=== PATIENT | male | born 1965 | race Two or more races ===

== ENCOUNTER 2020-09-25 11:12 | Outpatient (REF) | payer OTHER, SELFPAY | END 2020-09-25 11:13 | disposition home or self-care (01) | LOC: HO.LAB 11:12 | PROVIDERS: Visit Provider Internal Medicine | DX: Z20.828 Contact with and (suspected) exposure to other viral communicable diseases (principal) | CPT/HCPCS: C9803; U0003 ==

== ENCOUNTER → 2020-10-13 14:07 | Outpatient (BNVA) | payer OTHER, SELFPAY | PROVIDERS: PCP Internal Medicine; Referring Provider Internal Medicine; Visit Provider Student in an Organized Health Care Education/Training Program | DX: Z76.89 Persons encountering health services in other specified circumstances (principal) ==

== ENCOUNTER 2021-01-02 09:46 | Outpatient (REF) | payer OTHER, SELFPAY ==
--- NOTE | ~2021-01-02 | XR_ITS ---
EXAMINATION: X-RAY ORBITS CLINICAL INFORMATION: Evaluate metal to the eyes.. COMPARISON: None TECHNIQUE: 3 views of the orbits FINDINGS: No radiopaque metallic density is seen projected over the orbits bilaterally. Visualized maxillary sinuses appear well-aerated. The frontal sinuses are not well seen. Densities related to prior dental work. XR/XR pre mri screening IMPRESSION: No radiopaque metallic foreign body is seen projected over the orbits bilaterally.
--- NOTE | ~2021-01-02 | MR_ITS ---
EXAM: MR RIGHT HAND WITH AND WITHOUT CONTRAST CLINICAL INDICATION: History of right hand pain and difficulty clinching fingers into a fist. COMPARISON: Right hand radiographs dated March 08, 2020. TECHNIQUE: MRI of the right hand was performed without administration of IV contrast using a local coil. Multisequence, multiplanar imaging was performed. FINDINGS: Bones: The bone marrow signal intensity is within normal limits. No fracture line or bone marrow edema. The joint spaces are maintained. No erosion or periosteal edema. Ligaments: The collateral ligaments are intact. The volar (save the fifth volar plate as described below) and dorsal plates are intact. The visualized sagittal bands are intact. Tendons/Pulleys: There is complete disruption of the A3 shawnee at the fifth PIP joint. Additionally, there appears to be high-grade disruption of the A4 shawnee at the level of the mid aspect of the fifth middle phalanx. At the fifth PIP joint there is full-thickness disruption of the origin of the volar plate. There is resultant flexion deformity at the fifth PIP joint. The flexor digitorum profundus of the fifth finger is preserved and the flexor digitorum superficialis of the fifth finger appears preserved. Secondary to the shawnee injuries, there is resultant bowstringing of the flexor digitorum profundus at the level of the fifth PIP joint best visualized on (3:11). The extensor tendons/apparatus of the fifth finger are intact. Soft Tissues: The muscles are normal in morphology and signal intensity. No fluid collection. MR/MR hand RT wo/w con IMPRESSION: Right hand: Full-thickness disruption of the A3 shawnee and likely high-grade disruption of the A4 shawnee of the fifth finger. Additionally, there is high-grade full-thickness tear of the origin of the volar plate at the fifth PIP joint. There is there is concomitant bowstringing of the flexor digitorum profundus tendon and flexion deformity of the fifth PIP joint respectively. Of note, dedicated small field of view of the involved fingers was not performed. A dedicated small field of view imaging of the fifth finger may be considered for further evaluation.
[2021-01-02 10:24] LABS: Blood Urea Nitrogen 19 mg/dL (9-16); Estimated Glomerular Filt Rate > 60
== END 2021-01-02 09:47 | disposition home or self-care (01) ==
LOC: HO.MRI 09:46
PROVIDERS: Visit Provider Student in an Organized Health Care Education/Training Program
DX: M79.89 Other specified soft tissue disorders (principal); M79.641 Pain in right hand
CPT/HCPCS: 36415; 73220; 82565; 84520; A9585

== ENCOUNTER → 2021-01-30 08:29 | Outpatient (BNVA) | payer OTHER, SELFPAY | PROVIDERS: PCP Nurse Practitioner Family; Visit Provider Student in an Organized Health Care Education/Training Program | DX: M25.50 Pain in unspecified joint (principal) | CPT/HCPCS: 99212 ==

== ENCOUNTER 2021-02-05 14:24 | Outpatient (REF) | payer OTHER, SELFPAY ==
--- NOTE | ~2021-02-05 | XR_ITS ---
EXAMINATION: RIGHT HAND AND WRIST X-RAYS CLINICAL INFORMATION: Pain COMPARISON: Previous x-ray February 2020 and MRI December 2020 TECHNIQUE: 4 views of the right hand and 3 views of the right wrist FINDINGS: Right hand: No acute fracture or dislocation is seen. There is a well-corticated ossification adjacent to the base of the fifth metacarpal bone questionable for old trauma. There is flexion of the PIP joint and slight extension of the DIP joint of the fifth finger. Bone alignment is otherwise normal. No fracture or dislocation is seen. The joint spaces are normal. Soft tissues are normal. Right wrist: Bone alignment is normal. No fracture or dislocation is seen. Joint spaces and soft tissues are normal. XR/XR wrist RT min 3V IMPRESSION: Right hand: Flexion of the PIP joint and slight extension at the DIP joint of the left fifth finger. Question evidence of old trauma to the base of the fifth metacarpal bone. Right wrist: Unremarkable exam.
--- NOTE | ~2021-02-05 | XR_ITS ---
EXAMINATION: RIGHT HAND AND WRIST X-RAYS CLINICAL INFORMATION: Pain COMPARISON: Previous x-ray February 2020 and MRI December 2020 TECHNIQUE: 4 views of the right hand and 3 views of the right wrist FINDINGS: Right hand: No acute fracture or dislocation is seen. There is a well-corticated ossification adjacent to the base of the fifth metacarpal bone questionable for old trauma. There is flexion of the PIP joint and slight extension of the DIP joint of the fifth finger. Bone alignment is otherwise normal. No fracture or dislocation is seen. The joint spaces are normal. Soft tissues are normal. Right wrist: Bone alignment is normal. No fracture or dislocation is seen. Joint spaces and soft tissues are normal. XR/XR hand RT min 3V IMPRESSION: Right hand: Flexion of the PIP joint and slight extension at the DIP joint of the left fifth finger. Question evidence of old trauma to the base of the fifth metacarpal bone. Right wrist: Unremarkable exam.
== END 2021-02-05 14:25 | disposition home or self-care (01) ==
LOC: HO.HOSX 14:24
PROVIDERS: PCP Nurse Practitioner Family; Visit Provider Orthopaedic Surgery
DX: M25.531 Pain in right wrist (principal); M79.644 Pain in right finger(s); M25.50 Pain in unspecified joint
CPT/HCPCS: 20605; 73110; 73130; 99202; J1100

== ENCOUNTER 2021-06-09 14:54 | Emergency (ER) | payer OTHER, SELFPAY ==
--- NOTE | ~2021-06-09 | CT_ITS ---
EXAMINATION: CT HEAD WITHOUT CONTRAST CLINICAL INFORMATION: Headache. COMPARISON: None TECHNIQUE: Contiguous axial imaging was performed from the skull base to vertex without intravenous administration of contrast. This CT examination was performed using dose optimization techniques as appropriate, variously including the following: *Automated exposure control *Adjustment of mA and/or kV according to patient size (this includes techniques or standardized protocols for targeted exams where dose is matched to indication/reason for exam; i.e. extremities or head) *Use of iterative reconstruction technique DLP: 691 mGy-cm FINDINGS: There is no evidence of acute intracranial hemorrhage or territorial infarction. No abnormal mass effect or midline shift is seen. Toro to white matter differentiation is well preserved. No extra-axial fluid collections are identified. The ventricles are normal in size. There is no abnormal attenuation within the brain parenchyma. The osseous structures and soft tissues are normal. Mucosal thickening is seen in multiple ethmoid air cells and in both maxillary sinuses and the right sphenoid sinus. The frontal sinuses are aplastic. The mastoid air cells are well aerated. CT/CT head/brain wo con IMPRESSION: -No acute intracranial pathology. -Sinus disease.
[2021-06-09 14:55] VITALS: BP 141/84; PULSE 78; RESP 18; TEMP 36.8; O2SAT 97; BMI 25.1
--- NOTE | 2021-06-09 15:12 | ED.GENADULT ---
HPI - General Adult General Chief complaint: General Medical Stated complaint: high blood pressure Time Seen by Provider: 06/09/21 15:10 Source: patient Mode of arrival: ambulatory Limitations: no limitations History of Present Illness HPI narrative: compliant with his amlodipine and losartan complaint: headache Onset (ago): day(s) (yesterday) Location: head Radiation: non-radiation Severity: moderate Quality: stabbing Pain Consistency: intermittent Relieving factors: none Exacerbating factors: none Associated symptoms: other (notes his eyes are a little red, also had some loose stools yesterday) Treatments prior to arrival: none Related Data Home Medications Medication Instructions Recorded Confirmed acetaminophen 650 mg 650 mg PO Q8H 10/13/20 03/23/21 tablet,extended release (Tylenol 8 Hour) diclofenac sodium 1 % topical gel 2 g TOPICAL QID 10/13/20 03/23/21 (Voltaren) ibuprofen 600 mg tablet 600 mg PO Q8H PRN 03/23/21 03/23/21 losartan 25 mg tablet 25 mg PO DAILY 03/23/21 03/23/21 Previous Rx's Medication Instructions Recorded cetirizine 10 mg tablet 10 mg PO DAILY #30 tab 03/07/21 amoxicillin 875 mg-potassium 1 tab PO BID #14 tab 03/23/21 clavulanate 125 mg tablet (Augmentin) oxycodone-acetaminophen 10 mg-325 1 tab PO Q6H PRN #14 tab 03/23/21 mg tablet (Percocet) amlodipine 10 mg tablet 10 mg PO DAILY #30 tab 04/10/21 losartan 50 mg tablet 50 mg PO DAILY #90 tab 05/07/21 amoxicillin 875 mg-potassium 1 tab PO BID #14 tab 06/09/21 clavulanate 125 mg tablet (Augmentin) Allergies Allergy/AdvReac Type Severity Reaction Status Date / Time No Known Allergies Allergy Verified 06/09/21 14:55 [No Known Allergies*] Review of Systems Review of Systems: Constitutional : No Weight loss, No Fever, No Chills, No Fatigue, No Malaise ENT/Mouth : No sore throat, No Rhinorrhea Eyes: No Eye Pain, No Swelling, pos Redness Cardiovascular : No Chest Pain, No SOB, No Dyspnea on Exertion, No Orthopnea, No Edema, No Palpitations Respiratory : No Cough, No Sputum, No Wheezing Gastrointestinal : No Nausea, No Vomiting, pos Diarrhea, No Constipation, No abdominal Pain, No Hematochezia, No Melena Genitourinary : No Dysuria, No Urinary Frequency, No Hematuria, Musculoskeletal : No joint pain, No Myalgias, No Joint Swelling Skin : No Skin Lesions, No rash Neuro : No Weakness, No Numbness, No Dizziness, pos Headache Psych : No Anxiety/Panic, No Depression Heme/Lymph: No Bruising, No Bleeding,No Lymphadenopathy Endocrine : No Polyuria, No Polydipsia All other systems reviewed and are negative [facility] Past Medical History Attestation statement: The following information was validated with the patient. 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 Oriented X3. No acute distress. Eyes: Pupils equal, round and reactive to light. Slight erythematous injection to both eyes no eye pain itself no photophobia ENT: Pharynx normal. Neck: Normal inspection. Neck supple. no meningeal signs CVS: Normal heart rate and rhythm. Pulses normal. Respiratory: No respiratory distress. Breath sounds normal. Abdomen: Soft and nontender. Skin: Skin warm and dry. Normal skin color. Normal skin turgor. Extremities: No lower extremity edema. No calf ttp Neuro: Oriented X 3. No motor deficit. No sensory deficit. 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 IV morphine for pain. Lab Data Result diagrams: 06/09/21 15:53 06/09/21 15:53 Labs: Lab Results 06/09/21 06/09/21 06/09/21 Range/Units 15:53 15:53 15:53 WBC 7.0 (4.8-10.8) X10*3/uL RBC 5.15 (4.60-5.80) X10*6/uL Hgb 14.0 (14.0-18.0) g/dl Hct 44.1 (42-52) % MCV 85.6 (80-98) fL MCH 27.2 (27.0-33.0) pg MCHC 31.7 (31.0-36.0) g/dl RDW 13.8 (11.0-16.0) % Plt Count 196 (160-400) X10*3/uL MPV 11.8 (9.4-12.4) fL Immature Gran % (Auto) 0.4 (0.0-0.4) % Neut % (Auto) 64.4 (45-73) % Lymph % (Auto) 18.7 L (20-40) % [place] % (Auto) 10.8 (2-11) % Eos % (Auto) 5.3 H (0-4) % Baso % (Auto) 0.4 (0-2) % Lymph # (Auto) 1.3 (1.2-4.9) X10*3/uL [place] # (Auto) 0.8 (0.1-1.2) X10*3/uL Eos # (Auto) 0.4 (0.0-0.4) X10*3/uL Baso # (Auto) 0.0 (0.0-0.2) X10*3/uL Abs Immat Gran (auto) 0.03 (0.00-0.03) X10*3/uL Absolute Neuts (auto) 4.5 (2.0-8.3) X10*3/uL Absolute Nucleated RBC 0.000 (0.0-0.012) X10*3/uL Nucleated RBC % (auto) 0.0 (0.0-0.2) /100WBC Sodium 142 (135-145) mmol/L Potassium 4.3 (3.3-5.1) mmol/L Chloride 110 H (96-108) mmol/L Carbon Dioxide 24 (22-29) mmol/L Anion Gap 12 (12-20) BUN 23 H (9-16) mg/dL Creatinine 0.97 (0.5-1.4) mg/dL Estim Creat Clear Calc 90.5 Estimated GFR > 60 Random Glucose 112 (60-115) mg/dL Calcium 9.6 (8.4-10.2) mg/dL Magnesium 2.3 (1.6-2.6) mg/dL COVID-19 ([facility]) Negative (Negative) COVID-19 Clin Com See Note Discharge Plan Discharge Clinical Impression: Acute dehydration, Sinusitis Patient Disposition: Home, Self-Care Instructions: Dehydration (ED), Sinusitis (ED) Additional Instructions: return to ED for any worsening symptoms or concerns Prescriptions: New amoxicillin-pot clavulanate [Augmentin] 875-125 mg tablet 1 tab PO BID Qty: 14 RF: 0 No Action cetirizine 10 mg tablet 10 mg PO DAILY Qty: 30 RF: 2 amlodipine 10 mg tablet 10 mg PO DAILY Qty: 30 RF: 3 losartan 50 mg tablet 50 mg PO DAILY Qty: 90 RF: 1 losartan 25 mg tablet 25 mg PO DAILY RF: 0 ibuprofen 600 mg tablet 600 mg PO Q8H PRN (Reason: pain) RF: 0 amoxicillin-pot clavulanate [Augmentin] 875-125 mg tablet 1 tab PO BID Qty: 14 RF: 0 oxycodone-acetaminophen [Percocet] 10-325 mg tablet 1 tab PO Q6H PRN (Reason: pain) Qty: 14 RF: 0 diclofenac sodium [Voltaren] 1 % gel 2 g topical QID RF: 0 acetaminophen [Tylenol 8 Hour] 650 mg tablet extended release 650 mg PO Q8H RF: 0 Referrals: Bryant Nelson, EIGHT ARM OPERATOR-[facility] [Primary Care Provider] - 3 days (if not better) Stand Alone Forms: Work/School Release Print Language: Rw[place]an
[2021-06-09 15:36] VITALS: BP 128/72; PULSE 68; RESP 18; O2SAT 98
[2021-06-09] MEDS: 0.9 % Sodium Chloride 1,000 ML 999 ML IVCONT ×2 (15:52→16:20)
[2021-06-09 15:58] LABS: MANUAL DIFF FLAG NO
[2021-06-09 16:07] LABS: Basophils Percent Auto 0.4 % (0-2); Eosinophils Absolute Auto 0.4 X10*3/uL (0.0-0.4); Eosinophils Percent Auto 5.3 % (0-4); Hematocrit 44.1 % (42-52); Imm Gran Abs Auto 0.03 X10*3/uL (0.00-0.03); Imm Gran Pct Auto 0.4 % (0.0-0.4); Lymphocytes Absolute Auto 1.3 X10*3/uL (1.2-4.9); Lymphocytes Percent Auto 18.7 % (20-40); Mean Corpuscular HGB Conc 31.7 g/dl (31.0-36.0); Mean Corpuscular Hemoglobin 27.2 pg (27.0-33.0); Mean Corpuscular Volume 85.6 fL (80-98); Mean Platelet Volume 11.8 fL (9.4-12.4); Monocytes Absolute Auto 0.8 X10*3/uL (0.1-1.2); Monocytes Percent Auto 10.8 % (2-11); Neutrophils Absolute Auto 4.5 X10*3/uL (2.0-8.3); Neutrophils Percent Auto 64.4 % (45-73); Platelet Count 196 X10*3/uL (160-400); Red Blood Count 5.15 X10*6/uL (4.60-5.80); Red Cell Distribution Width 13.8 % (11.0-16.0)
[2021-06-09 16:11] LABS: COVID-19 Test Negative (Negative)
[2021-06-09 16:23] LABS: Anion Gap 12 (12-20); Blood Urea Nitrogen 23 mg/dL (9-16); Calcium 9.6 mg/dL (8.4-10.2); Carbon Dioxide 24 mmol/L (22-29); Chloride 110 mmol/L (96-108); Creatinine Clr Calc Pharmacy 90.5; Estimated Glomerular Filt Rate > 60; Glucose Random 112 mg/dL (60-115); Magnesium 2.3 mg/dL (1.6-2.6); Potassium 4.3 mmol/L (3.3-5.1); Sodium 142 mmol/L (135-145)
[2021-06-09] MEDS: Amoxicillin/Potassium Clav 875 MG TABLET PO (17:27)
[2021-06-09 17:28] VITALS: BP 143/83; PULSE 65; RESP 16; O2SAT 96
== END 2021-06-09 17:38 | disposition home or self-care (01) ==
PROVIDERS: Emergency Provider Emergency Medicine; PCP Nurse Practitioner Family
DX: E86.0 Dehydration (principal); J32.9 Chronic sinusitis, unspecified; Z20.822 Contact with and (suspected) exposure to COVID-19
CPT/HCPCS: 36415; 70450; 80048; 83735; 85025; 87635; 96360; 96361; 96374; 96375; 99284

== ENCOUNTER 2022-05-22 16:21 | Outpatient (REF) | payer OTHER, SELFPAY ==
[2022-05-22 16:41] LABS: Hemoglobin 14.5 g/dl (14.0-18.0); Mean Corpuscular HGB Conc 30.9 g/dl (31.0-36.0); Mean Corpuscular Hemoglobin 26.9 pg (27.0-33.0); Mean Platelet Volume 11.2 fL (9.4-12.4); Platelet Count 218 X10*3/uL (160-400); Red Cell Distribution Width 13.7 % (11.0-16.0); White Blood Count 6.8 X10*3/uL (4.8-10.8)
[2022-05-22 17:09] LABS: Alanine Aminotransferase 37 U/L (0-40); Albumin Level 4.5 g/dL (3.5-5.0); Alkaline Phosphatase 76 U/L (39-117); Anion Gap 12 (12-20); Aspartate Amino Transferase 21 U/L (5-37); Bilirubin Total 0.4 mg/dL (0.0-1.0); Blood Urea Nitrogen 22 mg/dL (9-16); C Reactive Protein 0.11 mg/dL (< or = 0.50); Calcium 9.7 mg/dL (8.4-10.2); Carbon Dioxide 27 mmol/L (22-29); Chloride 109 mmol/L (96-108); Estimated Glomerular Filt Rate 52; Glucose Random 89 mg/dL (60-115); Lipase 32 U/L (8-78); Potassium 5.2 mmol/L (3.3-5.1); Sodium 143 mmol/L (135-145); Total Protein 7.5 g/dL (6.5-8.0)
[2022-05-22 17:29] LABS: TSH reflex Free T4 0.95 uIU/mL (0.32-4.0)
[2022-05-22 17:39] LABS: Vitamin B12 218 pg/mL (200-900)
[2022-05-24 14:09] LABS: H Pylori Breath Test Negative (Negative)
[2022-05-28 14:22] LABS: Vitamin D 25-OH, D2 <4 ng/mL; Vitamin D 25-OH, D3 31 ng/mL; Vitamin D 25-OH, Total 31 ng/mL (30-100)
== END 2022-05-22 16:22 | disposition home or self-care (01) ==
LOC: HO.LAB 16:21
PROVIDERS: PCP Nurse Practitioner Family; Visit Provider Nurse Practitioner Family
DX: R10.9 Unspecified abdominal pain (principal); R19.7 Diarrhea, unspecified; K58.9 Irritable bowel syndrome, unspecified; K21.9 Gastro-esophageal reflux disease without esophagitis; E55.9 Vitamin D deficiency, unspecified; Z11.0 Encounter for screening for intestinal infectious diseases
CPT/HCPCS: 36415; 80053; 82306; 82607; 82746; 83013; 83690; 84443; 85027; 86140; 99202; 99212

== ENCOUNTER → 2022-07-24 15:19 | Outpatient (BNVA) | payer OTHER, SELFPAY | PROVIDERS: PCP Nurse Practitioner Family; Visit Provider Nurse Practitioner Family | DX: Z01.818 Encounter for other preprocedural examination (principal); R14.0 Abdominal distension (gaseous); K21.9 Gastro-esophageal reflux disease without esophagitis | CPT/HCPCS: 99212 ==

== ENCOUNTER 2022-12-09 09:27 | Day surgery (SDC) | payer OTHER, SELFPAY ==
--- NOTE | 2022-12-06 13:03 | HO.ANESPROP2 ---
Documented by User: Dorothy Mcgraw NP 12/06/22 13:03 HPI - Anesthesia Eval Consult details Narrative: 57yo M for Colonoscopy PMFSH Active Problems Active Problems: All Active Problems (Updated 12/02/22 @ 16:19 by Griselda Beltrán, RN) Polyarthralgia (Acute) Swelling of right hand (Acute) Right wrist pain (Acute) Finger pain, right (Acute) Cellulitis (Acute) HTN (hypertension) (Acute) Screening PSA (prostate specific antigen) (Acute) Fecal incontinence (Acute) Past Medical History Medical History (Updated 12/02/22 @ 16:19 by Griselda Beltrán, PAMELA) GERD (gastroesophageal reflux disease) History of corneal abrasion History of pneumonia HTN (hypertension) IBS (irritable bowel syndrome) Family History Family History Father Diabetes HTN (hypertension) Social History Social History Household Members: Spouse Housing: House Alcohol intake: never Patient Tobacco Use Status: Former Tobacco user e-Cigarette/Vaping Use: Never Used Use of substances other than those prescribed or required for medical reasons: No Are you DNR?: No Advance Directives: No Advance Directives Information Provided: Yes Nutrition Risks: No Nutritional Risk service: No Current occupational status: employed 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 Cognitive needs: No Hearing needs: No Vision needs: No Meds Allergies Allergy/AdvReac Type Severity Reaction Status Date / Time No Known Allergies Allergy Verified 12/02/22 16:09 [No Known Allergies*] Home Medications Medication Instructions Recorded Confirmed Last Taken Type acetaminophen 650 mg 650 mg PO Q8H 10/13/20 12/02/22 Unknown History tablet,extended release (Tylenol 8 Hour) diclofenac sodium 1 % topical gel 2 g topical QID 10/13/20 12/02/22 Unknown History (Voltaren) ibuprofen 600 mg tablet 600 mg PO Q8H PRN pain 03/23/21 12/02/22 12/05/22 History Exam Exam Date and Time: December 06, 2022 1303 Pertinent Lab Results Pertinent Lab Results: Laboratory Tests 05/22/22 05/22/22 16:29 16:29 WBC 6.8 Hgb 14.5 Hct 47.0 Plt Count 218 Sodium 143 Potassium 5.2 H D Chloride 109 H Carbon Dioxide 27 BUN 22 H Creatinine 1.41 H Assessment and Plan Assessment Anesthesia Assessment: Chart Reviewed Documented by User: Sasha Monterroso MD 12/09/22 12:52 PMFSH Past Medical History Medical History (Updated 12/02/22 @ 16:19 by Griselda Beltrán RN) GERD (gastroesophageal reflux disease) History of corneal abrasion History of pneumonia HTN (hypertension) IBS (irritable bowel syndrome) Family History Family History Father Diabetes HTN (hypertension) Family history of problems with anesthesia: No Surgical History History of Problems with Anesthesia: No Social History Social History Household Members: Spouse Housing: House Alcohol intake: never Patient Tobacco Use Status: Former Tobacco user e-Cigarette/Vaping Use: Never Used Use of substances other than those prescribed or required for medical reasons: No Are you DNR?: No Advance Directives: No Advance Directives Information Provided: Yes Nutrition Risks: No Nutritional Risk service: No Current occupational status: employed 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 Cognitive needs: No Hearing needs: No Vision needs: No Meds Allergies Allergy/AdvReac Type Severity Reaction Status Date / Time No Known Allergies Allergy Verified 12/02/22 16:09 [No Known Allergies*] Home Medications Medication Instructions Recorded Confirmed Last Taken Type acetaminophen 650 mg 650 mg PO Q8H 10/13/20 12/02/22 Unknown History tablet,extended release (Tylenol 8 Hour) diclofenac sodium 1 % topical gel 2 g topical QID 10/13/20 12/02/22 Unknown History (Voltaren) ibuprofen 600 mg tablet 600 mg PO Q8H PRN pain 03/23/21 12/02/22 12/05/22 History Exam Airway Mallampati Class: II TM Dist: >3cm Neck ROM: Full Heart: rrr Lungs: cta Assessment and Plan Assessment Anesthesia Assessment: Anesthesia Plan Discussed Final Anesthetic Review Family History of Problems with Anesthesia: No History of Problems with Anesthesia: No NPO: Yes ASA Class: II Final Preanesthetic Review: No Changes in Pt Med Stat, Meds/Allgs Chart Reviewed, Consent Obtained/Reviewed and Anes Risks/Benef Reviewed Patient Risk: Low Procedure Risk: Low Anesthetic Plan Anesthetic Plan: MAC: Disposition: Standard PACU
[2022-12-09 06:44] VITALS: BMI 25.7
[2022-12-09 09:47] VITALS: BP 138/64; PULSE 60; RESP 18; TEMP 36.6; O2SAT 97
[2022-12-09] MEDS: Lactated Ringers 1,000 ML 100 ML IVCONT (10:13)
--- NOTE | 2022-12-09 12:12 | MHC.SHP ---
Pre-Procedural Eval Section A Date of Service: 12/09/22 The patient is an INPATIENT: No The History & Physical has been completed within 30 days and I have reviewed it.: No Section B Chief Complaint: Encounter for screening for malignant neoplasm of Details of Present Illness: Colon cancer screening, postprandial diarrhea Relevant Family History (Specify if Yes): No Relevant Social History: Tobacco Use (Former smoker) Present Medications: see Short Stay Collaborative assessment Medical History: Significant History (GERD, hypertension) History of Previous Operations: No relevant previous surgery Allergies: Allergies Allergy/AdvReac Type Severity Reaction Status Date / Time No Known Allergies Allergy Verified 12/02/22 16:09 [No Known Allergies*] Review of Systems Sugical H&P ROS: Negative: Constitution, Cardiovascular, Respiratory and Gastrointestinal Exam Surgical H&P Exam: Normal: Heart, Normal: Lungs, Normal: Extremities and Normal: Abdomen Plan Diagnosis/Plan: Unchanged I have reviewed the history and physical and performed a pertinent physical examination on my patient. No changes have occurred unless specified. Time Spent With Patient Time: Total time managing care of this patient today ____ minutes.
--- NOTE | 2022-12-09 12:17 | P.BOP_ITS ---
Brief Operative Note Date of Service: 12/09/22 Pre-op diagnosis: Colon cancer screening, postprandial diarrhea Post-op diagnosis: other (Colon polyps, diverticulosis, hemorrhoids) Procedure: COLONOSCOPY TILL CECUM WITH BIOPSIES AND SNARE POLYPECTOMY Surgeon: Toñito Beltran MD Anesthesia: MAC Was an Architectural Engineer used for this Procedure?: Yes Architectural Engineer: Evelyn Barger Estimated blood loss (mL): 0 Pathology: other (A. right colon bxs, R/O microscopic colitis B. transverse colon polyps (2) C. left colon bxs, R/O microscopic colitis D. rectal polyp) Condition: stable Disposition: PACU
--- NOTE | 2022-12-09 12:18 | P.OP_ITS ---
Operative Note Operative Note Date of Service: 12/09/22 Narrative: Pre-op diagnosis: Colon cancer screening, postprandial diarrhea Post-op diagnosis:?other (Colon polyps, diverticulosis, hemorrhoids) Surgeon: Toñito Beltran MD Anesthesia:?MAC COLONOSCOPY TILL CECUM WITH BIOPSIES AND SNARE POLYPECTOMY Consent: Indications for the procedure and potential complications of bleeding, perforation, reaction to medications and missed diagnosis were discussed with the patient and informed consent was obtained. Instrument: Olympus PCF H 190 L variable stiffness pediatric colonoscope Monitoring: Vital signs and clinical assessment, intermittent blood pressure monitoring, continuous EKG monitoring, Pulse oximetry and Carbon Dioxide monitoring were done throughout the procedure. Colon withdrawl time was 23 minutes. Procedure: The patient was placed in the left lateral decubitis position and pre-procedure medications were administered. After a digital rectal examination of the ano-rectum, the video colonoscope was inserted into the rectum and advanced through the colon to the cecum. The colonoscope was slowly withdrawn in a retrograde panoramic fashion and the colon mucosa was carefully examined including a retroflexed view of the rectum. Findings and interventions are described below. Procedure Difficulty: Without difficulty Findings: Terminal Ileum: Not evaluated Cecum: Normal Ascending Colon: Normal Transverse Colon: Two 12 to 15 mm sessile polyps in the proximal TC - removed with a hot snare. Descending Colon: Normal Sigmoid Colon: Moderate diverticulosis Rectum: A 4-5 mm sessile polyp - removed with a cold bx Ano-rectum: Moderate internal hemorrhoids Colon preparation: Good after copious irrigation and fair in the left colon due to scattered undigested vegetable matter which could not be suctioned Impression and Post Procedure Diagnosis: Colonoscopy Findings: Three small to medium sized polyps removed Moderate diverticulosis seen in the sigmoid colon Moderate hemorrhoids on retroflexed exam. Plan: Await pathology results Patient has an appointment on 12/23/22 in the [facility] with Ashley Ellison FNP- [facility] . Repeat Colonoscopy interval based on path results - in 3 years if polyps are yevgeniy nomatous and due to fair prep in the left colon. Colon polyps and diverticulosis handouts were given in the discharge area
[2022-12-09 13:08] VITALS: BP 94/63; PULSE 65; RESP 12; TEMP 36.3; O2SAT 97
[2022-12-09 13:23] VITALS: BP 127/75; PULSE 51; RESP 16; TEMP 36.1; O2SAT 97
== END 2022-12-09 14:01 | disposition home or self-care (01) ==
PROVIDERS: PCP Nurse Practitioner Family; Visit Provider Internal Medicine Gastroenterology
PROC: 0DJD8ZZ Inspection of Lower Intestinal Tract, Via Natural or Artificial Opening Endoscopic (ICD-10-PCS; CPT 45378; principal; 2022-12-09 11:10)
DX: Z12.11 Encounter for screening for malignant neoplasm of colon (principal); K63.5 Polyp of colon; K62.1 Rectal polyp; K64.8 Other hemorrhoids; K57.30 Diverticulosis of large intestine without perforation or abscess without bleeding
CPT/HCPCS: 45385; 45380; 88305

== ENCOUNTER 2023-04-29 21:55 | Emergency (ER) | payer OTHER, SELFPAY ==
[2023-04-29 21:58] VITALS: BP 163/83; PULSE 59; RESP 18; TEMP 36.4; O2SAT 97; BMI 23.7
--- NOTE | 2023-04-29 22:27 | MHC.EDTECH ---
PATIENT BLOOD DRAWN AND SENT TO LAB .
[2023-04-29 22:28] LABS: MANUAL DIFF FLAG NO
[2023-04-29 22:29] LABS: Basophils Absolute Auto 0.1 X10*3/uL (0.0-0.2); Basophils Percent Auto 0.8 % (0-2); Eosinophils Absolute Auto 0.6 X10*3/uL (0.0-0.4); Eosinophils Percent Auto 10.3 % (0-4); Hematocrit 44.7 % (42.0-52.0); Imm Gran Abs Auto 0.03 X10*3/uL (0.00-0.03); Imm Gran Pct Auto 0.5 % (0.0-0.4); Lymphocytes Absolute Auto 1.6 X10*3/uL (1.2-4.9); Lymphocytes Percent Auto 27.2 % (20-40); Mean Corpuscular HGB Conc 31.3 g/dl (31.0-36.0); Mean Corpuscular Volume 86.3 fL (80.0-98.0); Mean Platelet Volume 11.2 fL (9.4-12.4); Monocytes Absolute Auto 0.7 X10*3/uL (0.1-1.2); Monocytes Percent Auto 12.3 % (2-11); Neutrophils Percent Auto 48.9 % (45-73); Platelet Count 204 X10*3/uL (160-400); Red Blood Count 5.18 X10*6/uL (4.60-5.80); Red Cell Distribution Width 13.4 % (11.0-16.0)
[2023-04-29 22:45] LABS: Anion Gap 15 (12-20); Blood Urea Nitrogen 16 mg/dL (9-16); Calcium 9.7 mg/dL (8.4-10.2); Carbon Dioxide 21 mmol/L (22-29); Chloride 110 mmol/L (96-108); Creatinine Clr Calc Pharmacy 96.4; Estimated Glomerular Filt Rate > 60; Glucose Random 120 mg/dL (60-115); Potassium 4.1 mmol/L (3.3-5.1); Sodium 142 mmol/L (135-145)
--- NOTE | 2023-04-29 23:53 | ED_ITS ---
HPI - Headache General Chief Complaint: Headache Stated Complaint: Dizziness/Unsteady gait Time Seen by Provider: 04/29/23 23:50 Source: patient Mode of arrival: ambulatory Limitations: no limitations History of Present Illness HPI Narrative: Patient hypertension comes here for acute onset of dizziness since morning feels everything spinning specially when he moves no tinnitus feel off balance had slight nausea also had slight headache in occipital area which she gets off and on. No weakness no chest pain or palpitation no vomiting patient with normal speech no focal deficit in the ER patient was ambulated no tremors blood pressure on arrival was 163/83 improved while staying in the ER to 148/82 patient is on amlodipine 10 mg and losartan 50 mg daily Related Data Home Medications Medication Instructions Recorded Confirmed acetaminophen 650 mg 650 mg PO Q8H 10/13/20 12/02/22 tablet,extended release (Tylenol 8 Hour) diclofenac sodium 1 % topical gel 2 g topical QID 10/13/20 12/02/22 (Voltaren) ibuprofen 600 mg tablet 600 mg PO Q8H PRN pain 03/23/21 12/02/22 Previous Rx's Medication Instructions Recorded cetirizine 10 mg tablet 10 mg PO DAILY #30 tabs 06/13/21 lidocaine 5 % topical cream 1 appl topical BID PRN pain #30 05/09/22 (RectiCare) grams amlodipine 10 mg tablet 10 mg PO DAILY #30 tabs 11/26/22 losartan 50 mg tablet 50 mg PO DAILY #90 tabs 11/26/22 meclizine 25 mg tablet 25 mg PO TID PRN dizziness #20 tabs 04/30/23 Allergies Allergy/AdvReac Type Severity Reaction Status Date / Time No Known Allergies Allergy Verified 12/02/22 16:09 [No Known Allergies*] Review of Systems Review of Systems: Yes all other systems are reviewed and are negative PMFSH Past Medical History Medical History GERD (gastroesophageal reflux disease) History of corneal abrasion History of pneumonia HTN (hypertension) IBS (irritable bowel syndrome) Family History Family History Father Diabetes HTN (hypertension) Social History Social History Household Members: Spouse Housing: House Alcohol intake: never Patient Tobacco Use Status: Former Tobacco user Smoked in Last 30 Days: No e-Cigarette/Vaping Use: Never Used Use of substances other than those prescribed or required for medical reasons: No Advance Directives: No Advance Directives Information Provided: Yes service: No Current occupational status: employed 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 Oriented X3. No acute distress. Eyes: PERRLA, No Nystagmus ENT: Pharynx normal. Oral Mucosa moist Neck: Normal inspection. Neck supple. CVS: Normal heart rate and rhythm. Pulses normal. Respiratory: No respiratory distress. Equal air entry bilateral, no wheezing/rales/rhonchi Abdomen: Soft and nontender. Bowel sounds are present, no mass palpable, no CVA tenderness Skin: Skin warm and dry. Normal skin color. Normal skin turgor. Extremities: No lower extremity edema. No calf tenderness Neuro: Oriented X 3. No motor deficit. No sensory deficit.No cerebellar signs , cranial nerves II-XII intact speech normal Medications Administered Discontinued Medications Generic Name Dose Route Start Last Admin Trade Name Freq PRN Reason Stop Dose Admin Meclizine HCl 50 mg 04/30/23 00:02 04/30/23 00:08 Meclizine Hcl 25 Mg Tablet PO 04/30/23 00:03 50 mg ONCE ONE Administration Medical Decision Making Medical Decision Making [facility] Narrative: Patient with stable labs clinically has benign positional vertigo no signs of central nervous system involvement speech normal no focal deficit will discharge patient home on meclizine patient felt better before discharge dizziness has improved Lab Data [facility] Lab Attestation statement: I reviewed the patient's lab results. 04/29/23 22:23 04/29/23 22:23 Labs: Lab Results 04/29/23 04/29/23 Range/Units 22:23 22:23 WBC 6.0 (4.8-10.8) X10*3/uL RBC 5.18 (4.60-5.80) X10*6/uL Hgb 14.0 (14.0-18.0) g/dl Hct 44.7 (42.0-52.0) % MCV 86.3 (80.0-98.0) fL MCH 27.0 (27.0-33.0) pg MCHC 31.3 (31.0-36.0) g/dl RDW 13.4 (11.0-16.0) % Plt Count 204 (160-400) X10*3/uL MPV 11.2 (9.4-12.4) fL Immature Gran % (Auto) 0.5 H (0.0-0.4) % Neut % (Auto) 48.9 (45-73) % Lymph % (Auto) 27.2 (20-40) % [place]cl[place] % (Auto) 12.3 H (2-11) % Eos % (Auto) 10.3 H (0-4) % Baso % (Auto) 0.8 (0-2) % Lymph # (Auto) 1.6 (1.2-4.9) X10*3/uL [place] # (Auto) 0.7 (0.1-1.2) X10*3/uL Eos # (Auto) 0.6 H (0.0-0.4) X10*3/uL Baso # (Auto) 0.1 (0.0-0.2) X10*3/uL Abs Immat Gran (auto) 0.03 (0.00-0.03) X10*3/uL Absolute Neuts (auto) 3.0 (2.0-8.3) x10*3/uL Absolute Nucleated RBC 0.000 (0.0-0.012) X10*3/uL Nucleated RBC % (auto) 0.0 (0.0-0.2) /100WBC Sodium 142 (135-145) mmol/L Potassium 4.1 D (3.3-5.1) mmol/L Chloride 110 H (96-108) mmol/L Carbon Dioxide 21 L (22-29) mmol/L Anion Gap 15 (12-20) BUN 16 (9-16) mg/dL Creatinine 0.90 (0.5-1.4) mg/dL Estim Creat Clear Calc 96.4 Estimated GFR > 60 Random Glucose 120 H (60-115) mg/dL Calcium 9.7 (8.4-10.2) mg/dL Discharge Plan Discharge Clinical Impression: Benign paroxysmal positional vertigo Patient Disposition: Home, Self-Care Instructions: Benign Paroxysmal Positional Vertigo (ED) Additional Instructions: Care and cautions as advised Meclizine 1 tablet every 8 hours as needed for dizziness Follow with PCP if not better Check blood pressure daily which should be less than 135/85 If blood pressure is higher than 160/90 you may take extra losartan 50 mg and follow with PCP Cuidados y precauciones seg?n lo recomendado Meclizine 1 tableta cada 8 horas seg?n sea necesario para los mareos Siga con PCP si no mejor Controle la presi?n arterial diariamente, que debe ser inferior a 135/85. Si la presi?n arterial es superior a 160/90, puede yvette 50 mg adicionales de losart?n y seguir con PCP. Prescriptions: New meclizine 25 mg tablet 25 mg PO TID PRN (Reason: dizziness) Qty: 20 0RF No Action cetirizine 10 mg tablet 10 mg PO DAILY Qty: 30 2RF amlodipine 10 mg tablet 10 mg PO DAILY Qty: 30 5RF losartan 50 mg tablet 50 mg PO DAILY Qty: 90 1RF ibuprofen 600 mg tablet 600 mg PO Q8H PRN (Reason: pain) lidocaine [RectiCare] 5 % cream 1 appl topical BID PRN (Reason: pain) Qty: 30 0RF diclofenac sodium [Voltaren] 1 % gel 2 g topical QID Rx Instructions: apply to single elbow, wrist or hand; for hand includes palm/fingers/back of hand acetaminophen [Tylenol 8 Hour] 650 mg tablet extended release 650 mg PO Q8H Print Language: Romansh
[2023-04-29 23:56] VITALS: BP 148/82; PULSE 55; RESP 18; TEMP 36.9; O2SAT 99
[2023-04-30 00:02] VITALS: BP 170/81; PULSE 53; RESP 17; TEMP 36.5; O2SAT 98
[2023-04-30] MEDS: Meclizine HCl 25 MG TABLET 50 MG PO (00:08)
--- NOTE | 2023-04-30 00:13 | PC.NURSE ---
patient was medicated with no issues patient will continue to be monitored for safety
--- NOTE | 2023-04-30 01:08 | PC.NURSE ---
patient is in the process of being discharged patient is aware
== END 2023-04-30 01:18 | disposition home or self-care (01) ==
PROVIDERS: Emergency Provider Internal Medicine; PCP Nurse Practitioner Family
DX: H81.10 Benign paroxysmal vertigo, unspecified ear (principal)
CPT/HCPCS: 36415; 80048; 85025; 99283; 99284

== ENCOUNTER 2023-09-02 10:07 | Outpatient (AMB) | payer OTHER, SELFPAY ==
--- NOTE | 2023-09-02 10:09 | MHC.PC.OV ---
Vital Signs 09/02/23 10:11 Height 5 ft 11 in Weight 161 lb BMI 22.5 BP 120/80 Blood Pressure Location Rt brachial Position Sitting Pulse 60 Pulse Source Pulse Oximeter Pulse Oximetry (%) 96 Oxygen Delivery Method Room Air Intake Visit Reasons: Medication F/U Allergies No Known Allergies [No Known Allergies*] Allergy (Verified 09/02/23 10:21) Medication List - Last Reconciled 09/02/23 by REGINALDO Melendez acetaminophen ER (Tylenol 8 Hour) 650 mg PO Q8H amlodipine 10 mg PO DAILY cetirizine 10 mg PO DAILY diclofenac sodium 1% (Voltaren) 2 grams topical QID ibuprofen 600 mg PO Q8H PRN lidocaine 5% (RectiCare) 1 appl topical BID PRN losartan 50 mg PO DAILY meclizine 25 mg PO TID PRN Tobacco use date assessed: 09/02/23 Dental Screening Dental Screen Date: 09/02/23 Did you have a dental visit in the last 12 months?: No Did you have a dental problem in the last 6 months where you did not have access to dental care?: No Was dental information given to patient?: No HPI Medication F/U HPI Details HTN: Blood pressure is stable, managed with amlodipine 10mg and losartan 50mg. Denies chest pain, shortness of breath, headache, dizziness, and blurred vision. Due for PSA, will order. Denies dribbling with urination, weak stream, and frequent nocturia. Pt reports a rash to his inguinal region and penis. He reports that this is very pruritic. He does also reports some burning with urination. Will send clotrimazole-betamethasone cream and mupirocin ointment. Will also order UA. 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 How often do you have a drink containing alcohol?: Monthly or less 2. How many drinks containing alcohol do you have on a typical day when you are drinking?: 1 or 2 3. How often do you have six or more drinks on one occasion?: Never Total Score: 1 Score Reviewed/Action Taken: No Review of Systems Const Reports as per HPI Physical exam (Primary Care) Vital Signs: Last Vital Signs Pulse 60 09/02/23 10:11 BP 120/80 09/02/23 10:11 Pulse Ox 96 09/02/23 10:11 Oxygen Delivery Method Room Air 09/02/23 10:11 BMI result Body Mass Index 22.5 Tobacco/Smoking Status: Tobacco use Status Tobacco use date assessed 09/02/23 09/02/23 10:14 Patient Tobacco Use Status Former Tobacco user 09/02/23 10:11 e-Cigarette/Vaping Use Never Used 09/02/23 10:11 Const General: cooperative Orientation/consciousness: patient oriented x3 Resp Effort & Inspection: normal respiratory effort Auscultation: clear to auscultation bilaterally Cardio Rate: regular rate Rhythm: regular rhythm Heart sounds: S1 normal heart sound present, S2 normal heart sound present and Murmur heart sound present systolic Other: (circumcised)inguinal region with faint erythema, erythema and dry skin to penile shaft and glans penis, faint erythema to base of glans penis, no active drainage Neuro General: patient oriented x3 Psych Appearance: grossly normal Mental Status: mental status grossly normal Speech and movement: Normal speech and movement present Affect: normal affect Attitude: cooperative Thought process: Normal thought process present Thought content: Normal thought content present Insight: Good insight present (Psych) Judgement: Good judgement present (Psych) Assessment and Plan Assessment & Plan (1) HTN (hypertension): Code(s): I10 - Essential (primary) hypertension Plan: Labs ordered (2) Screening PSA (prostate specific antigen): Code(s): Z12.5 - Encounter for screening for malignant neoplasm of prostate Plan: PSA ordered (3) Systolic murmur: Code(s): R01.1 - Cardiac murmur, unspecified Plan: Echo ordered Plan The patient agreed to the use of a certified medical records coder for this encounter. Scribed for VIJI Aly- by Amie Tyler certified medical records coder, on 09/02/2023 at 10:25 EST Orders: Orders Complete Blood Count Auto Diff Today I10 - Essential (primary) hypertension Comprehensive [place]. Panel Fast Today I10 - Essential (primary) hypertension TSH reflex Free T4 Today I10 - Essential (primary) hypertension UA CC w/rflx Micro + Cult Today I10 - Essential (primary) hypertension Prostate Specific Antigen Scr Today Z12.5 - Encounter for screening for malignant neoplasm of prostate Lipid Panel Today I10 - Essential (primary) hypertension CA echo transthoracic complete Today R01.1 - Cardiac murmur, unspecified Medications: New mupirocin 2% 1 appl topical BID 10 days 15 grams 0RF clotrimazole-betamethasone 1-0.05 % 1 appl topical DAILY 45 grams 0RF Coding Level of Care Code Est Pt Level 3 (18610) Diagnoses HTN (hypertension) I10 Screening PSA (prostate specific antigen) Z12.5 Systolic murmur R01.1
[2023-09-02 10:11] VITALS: BP 120/80; PULSE 60; O2SAT 96; BMI 22.5
== END 2023-09-02 12:13 | disposition home or self-care (01) ==
PROVIDERS: PCP Nurse Practitioner Family; Visit Provider Nurse Practitioner Family
DX: I10 Essential (primary) hypertension (principal); Z12.5 Encounter for screening for malignant neoplasm of prostate; R01.1 Cardiac murmur, unspecified
CPT/HCPCS: 99213

== ENCOUNTER → 2023-10-09 07:39 | Outpatient (REF) | payer OTHER, SELFPAY ==
--- NOTE | 2023-10-09 07:42 | CA_ITS ---
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 Normal LV ejection fraction 55-60% with impaired relaxation filling pattern 2. Normal cardiac valvular Dopplers 3. Mildly dilated left atrium 4. Upper limits of normal ascending aortic size 5. Normal RV systolic pressure 6. No gross pericardial effusion Findings Left Ventricle Normal left ventricular size, thickness, and systolic function. The visually estimated ejection fraction is between 55-60%. Spectral Doppler is indicative of an impaired relaxation filling pattern. E/E prime ratio is between 8 and 15 consistent with indeterminate filling pressures. Peak GLS is -18.6%, within normal limits. Right Ventricle Normal right ventricular cavity size and systolic function. Atria The left atrium is mildly dilated. There is no evidence of interatrial shunt. The right atrium is normal in size. Aortic Valve Normal aortic valve structure and function. There is no aortic valve stenosis. There is no aortic valve regurgitation. Mitral Valve Normal mitral valve structure and function. There is trace mitral valve regurgitation. There is no mitral valve stenosis. Pulmonic Valve The pulmonic valve is likely normal. There is trace pulmonic valve regurgitation. Tricuspid Valve Normal tricuspid valve structure. Tricuspid regurgitation envelope is inadequate for calculation of right ventricular systolic pressure. Normal right atrial pressure. Great Vessels The pulmonary artery was not well visualized. Venous The inferior vena cava is normal in size and collapses greater than 50% with inspiration. Pericardium/Pleural There is no evidence of pericardial effusion. Prior Study Comparison No significant change compared to prior study dated: 01/12/2018. Measurements 2D Linear Measurements IVSd: 1.11 0.6-0.9/0.6-1.0 cm LVIDd: 4.85 3.9-5.3/4.2-5.9 cm LVIDd Index: 2.59 2.4-3.2/2.2-3.1 cm/m2 LVIDs: 3.17 2.0-3.6 cm LVPWd: 0.89 0.7-1.1 cm LA Diam: 4.00 2.7-3.8/3.0-4.0 cm LAIDs Index: 2.14 1.5-2.3 cm/m2 LV Mass: 215.63 67-162/88-224 g LV Mass Index: 115.31 43-95/49-115 g/m2 LVOT Diam: 2.30 3.0+(-)1.3 cm 2D Systolic Function EF 4C: 55.60 >55% EF 2C: 56.10 >55% EF BiP: 55.10 >55% Mitral Valve MV Pk E: 0.69 MV PK A: 0.75 MV Decel Time: 183.00 E/A: 0.90 E'Lateral: 7.29 E'Medial: 5.11 E/E' Med: 13.60 E/E' Lat: 9.50 PHT: 54.00 MVA PHT: 4.07 Decel [place]: 3.79 Aortic Valve AoV Pk Kevin: 1.69 AoV Mn Kevin: 0.98 AoV VTI: 0.33 AoV Pk Grad: 11.00 Aov Mn Grad: 5.00 REYNALDO Cont.VTI: 2.60 LVOT LVOT Pk Kevin: 0.88 LVOT Mn Kevin: 0.57 LVOT VTI: 0.20 LVOT Pk Grad: 3.00 LVOT Mn Grad: 2.00 LVOT Diam: 2.30 LVOT Area: 4.15 Diastolic Function MV Pk E: 0.69 MV Pk A: 0.75 E/A: 0.90 E'Medial: 5.11 E/E' Med: 13.60 E' Laterial: 7.29 E/E' Lat: 9.50 Right Ventricle TAPSE (mm): 26.70 TVS' Kevin: 10.90 Tricuspid Valve RA Press: 3.00 Great Vessels Aorta Sinus of Valsalva: 3.48 2.0-3.[address] [place]: 2.86 1.7-3.4 cm Ao Asc: 3.60 2.1-3.4 cm Updated in Other Vendor System with Status of Final Brandon Sotomayor MD electronically signed on 10/10/2023 3:33:20 PM with status of Final
== END ==
LOC: HO.CARD 07:39
PROVIDERS: PCP Nurse Practitioner Family; Visit Provider Nurse Practitioner Family
DX: R01.1 Cardiac murmur, unspecified (principal)
CPT/HCPCS: 93306

== ENCOUNTER → 2023-10-09 07:42 | Outpatient (BNV) | payer OTHER, SELFPAY | PROVIDERS: PCP Nurse Practitioner Family; Visit Provider Internal Medicine Cardiovascular Disease | DX: R01.1 Cardiac murmur, unspecified (principal) | CPT/HCPCS: 93306 ==

== ENCOUNTER 2024-01-22 13:01 | Emergency (ER) | payer OTHER, SELFPAY ==
--- NOTE | ~2024-01-22 | CT_ITS ---
EXAMINATION: CT ABDOMEN AND PELVIS WITHOUT CONTRAST CLINICAL INFORMATION: Right flank pain. COMPARISON: None available. TECHNIQUE: Multidetector volumetric imaging was performed from the superior aspect of the liver through the pubic symphysis. Sagittal and coronal reformatted images were obtained on the technologist's workstation. This CT examination was performed using dose optimization techniques as appropriate, variously including the following: *Automated exposure control *Adjustment of mA and/or kV according to patient size (this includes techniques or standardized protocols for targeted exams where dose is matched to indication/reason for exam; i.e. extremities or head) *Use of iterative reconstruction technique DLP: 446 mGy-cm FINDINGS: LUNG BASES: Small hiatal hernia. LIVER, GALLBLADDER, AND BILIARY TREE: The noncontrast liver is normal in size and contour. No biliary ductal dilatation is present. The gallbladder is unremarkable with no evidence of radiopaque gallstones, gallbladder wall thickening, or obvious pericholecystic inflammatory changes. PANCREAS: Unremarkable. SPLEEN: Unremarkable. ADRENAL GLANDS: Unremarkable. KIDNEYS AND URETERS: The kidneys are symmetric in size. 4 mm nonobstructing calculus lower pole right kidney. There are bilateral punctate nonobstructing renal calculi. There is a 4 mm calculus in the proximal right ureter causing mild right hydroureteronephrosis. BLADDER: No bladder calculus. GASTROINTESTINAL TRACT: Small and large bowel loops are of normal caliber. No small bowel obstruction. Appendix is within normal limits. ABDOMINAL WALL: No significant hernia is appreciated. LYMPH NODES: No bulky lymphadenopathy. VASCULAR: Normal caliber abdominal aorta. PELVIC VISCERA: Enlarged prostate gland. OSSEOUS STRUCTURES: No destructive bone lesions. CT/CT abdomen pelvis wo IV con IMPRESSION: 4 mm calculus in the proximal right ureter with mild right hydroureteronephrosis.
[2024-01-22 13:07] VITALS: BP 127/80; PULSE 54; RESP 17; TEMP 37.1; O2SAT 99; BMI 24.4
--- NOTE | 2024-01-22 13:07 | ED_ITS ---
HPI - General Adult General Chief complaint: Back Pain/Injury Stated complaint: Mid Back Pain No Injury Time Seen by Provider: 01/22/24 14:04 Source: patient and crib attendant Mode of arrival: ambulatory Limitations: language barrier History of Present Illness HPI narrative: Patient is a 58-year-old Ghanaian-speaking male with history of kidney stones, HTN presenting to the emergency department with complaint of acute onset right flank pain 1-2 hours prior to arrival. Patient reports that pain was severe but that while in exam room waiting for assessment, he went to the bathroom to provide urine specimen, became nauseous and vomited, and pain spontaneously resolved. He reports that pain felt similar to prior kidney stones. He denies any dysuria, frequency, hematuria. Denies any diarrhea or constipation. States he is currently pain-free and nausea free. MD complaint: Right flank pain Onset (ago): hour(s) Radiation: flank Severity: similar to prior episodes Quality: sharp Pain Consistency: now resolved Treatments prior to arrival: none Related Data Home Medications Medication Instructions Recorded Confirmed acetaminophen 650 mg 650 mg PO Q8H 10/13/20 09/02/23 tablet,extended release (Tylenol 8 Hour) diclofenac sodium 1 % topical gel 2 g topical QID 10/13/20 09/02/23 (Voltaren) ibuprofen 600 mg tablet 600 mg PO Q8H PRN pain 03/23/21 09/02/23 Previous Rx's Medication Instructions Recorded cetirizine 10 mg tablet 10 mg PO DAILY #30 tabs 06/13/21 lidocaine 5 % topical cream 1 appl topical BID PRN pain #30 05/09/22 (RectiCare) grams meclizine 25 mg tablet 25 mg PO TID PRN dizziness #20 tabs 04/30/23 clotrimazole-betamethasone 1 1 appl topical DAILY #45 grams 09/02/23 %-0.05 % topical cream mupirocin 2 % topical ointment 1 appl topical BID 10 days #15 09/02/23 grams losartan 50 mg tablet 50 mg PO DAILY #90 tabs 09/15/23 amlodipine 10 mg tablet 10 mg PO DAILY #90 tabs 09/17/23 ondansetron 4 mg disintegrating 4 mg PO Q8H PRN nausea and 01/22/24 tablet vomiting #10 tabs oxycodone 5 mg tablet 5 mg PO Q8H PRN severe pain (scale 01/22/24 score 7-10) #8 tabs prednisone 20 mg tablet 20 mg PO DAILY #5 tabs 01/22/24 tamsulosin 0.4 mg capsule 0.4 mg PO DAILY #14 caps 01/22/24 Allergies Allergy/AdvReac Type Severity Reaction Status Date / Time No Known Allergies Allergy Verified 09/02/23 10:21 [No Known Allergies*] Review of Systems 2 Review of Systems: As per HPI. Yes all other systems are reviewed and are negative Constitutional: Constitutional: Reports as per HPI [facility] Past Medical History Medical History IBS (irritable bowel syndrome) GERD (gastroesophageal reflux disease) History of pneumonia History of corneal abrasion HTN (hypertension) Family History Family History Father Diabetes HTN (hypertension) Social History Social History Household Members: Spouse Housing: House Alcohol intake: never Patient Tobacco Use Status: Former Tobacco user e-Cigarette/Vaping Use: Never Used Advance Directives: No service: No Current occupational status: employed 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 Blood pressure normal. Heart rate normal. Respiratory rate normal. Temperature normal. Oxygen saturation normal. Const General: cooperative, healthy appearing and no acute distress Orientation/consciousness: oriented to person, oriented to place, oriented to time and patient oriented x3 Limitations: no limitations HENMT Head: Yes normocephalic and Yes atraumatic Ears: external ears normal General nose exam: Normal external nose present Face and sinus: Yes face symmetric Mouth: oropharynx normal and moist mucous membranes Throat: Yes uvula midline Eyes Pupils: Equal, round and reactive pupils present Neck Neck: Yes normal visual inspection and Yes supple Resp Effort & Inspection: normal respiratory effort and able to speak in complete sentences Auscultation: clear to auscultation bilaterally Cardio Rate: regular rate Rhythm: regular rhythm Heart sounds: S1 normal heart sound present and S2 normal heart sound present GI Palpation (GI): Soft to palpation and nontender Auscultation: normoactive bowel sounds General: Yes no CVA tenderness Back/Spine/Pelvis Back: no CVA tenderness Skin General skin exam: elasticity normal and turgor normal Neuro General: oriented to person, oriented to place, oriented to time, patient oriented x3, moves all extremities, no focal motor deficits and CN's II-XI intact bilaterally Cranial nerves: Yes Equal, round and reactive pupils present Cognition (Neuro): normal cognition Extrem General: Yes full ROM, Yes no pedal edema and Yes no calf tenderness Psych Mental Status: mental status grossly normal Affect: normal affect Thought process: Normal thought process present Course Course Course Narrative: This is an RME: Additional HPI, ROS, PE not included below will be deferred to primary provider. 58 yo m presents w/ right flank pain and difficulties w/ urination since this am. Hx of stones. Plan- labs urine Medications Administered Discontinued Medications Generic Name Dose Route Start Last Admin Trade Name Freq PRN Reason Stop Dose Admin Ketorolac Tromethamine 30 mg 01/22/24 14:30 01/22/24 14:43 Ketorolac Tromethamine 30 Mg/Ml Vial IM 01/22/24 14:31 30 mg ONCE ONE Administration Medical Decision Making Medical Decision Making [facility] Narrative: Patient is a 58-year-old Ghanaian-speaking male with history of kidney stones, HTN presenting to the emergency department with complaint of acute onset right flank pain 1-2 hours prior to arrival. On exam patient is awake, A+Ox3, VS WNL, afebrile, normal neurological exam without focal deficits, physical exam findings as above. Given reported symptoms and physical exam findings, initial differential includes renal/ureteral calculi, UTI, pyelonephritis. Unlikely pneumonia as patient denies cough, fever, dyspnea. Labs notable for leukocytosis, mild anemia, mildly elevated BUN. CT notable for 4mm calculus proximal R ureter with mild right hydroureteralnephrosis. My interpretation is in agreement with the radiologist's interpretation. Case discussed with Dr. Rivers who is in agreement with plan for discharge home with prednisone, Flomax, Zofran, and oxycodone for severe pain and outpatient follow-up in 7-14 days. Results discussed with patient via crib attendant and all questions answered. Return precautions discussed with patient. Patient verbalized understanding of and agreement with plan. Differential Diagnosis Differential Diagnoses: The differential diagnosis associated with the presentation includes As per [facility]. Admission/Observation Consideration of admission/observation: Escalation of care including admission/observation considered Patient would have been admitted to the hospital had their work up had any findings where hospital admission was appropriate and their clinical presentation warranted hospital admission. Consult Healthcare Provider Management of the patient was discussed with: Art History Instructor (Dr. Rivers, urology) Lab Data [facility] Lab Attestation statement: I reviewed the patient's lab results. As per [facility] 01/22/24 14:10 01/22/24 14:10 Labs: Lab Results 01/22/24 01/22/24 Range/Units 14:10 14:26 WBC 15.5 H (4.8-10.8) X10*3/uL RBC 5.06 (4.60-5.80) X10*6/uL Hgb 13.5 L (14.0-18.0) g/dl Hct 41.9 L (42.0-52.0) % MCV 82.8 (80.0-98.0) fL MCH 26.7 L (27.0-33.0) pg MCHC 32.2 (31.0-36.0) g/dl RDW 13.5 (11.0-16.0) % Plt Count 246 (160-400) X10*3/uL MPV 11.0 (9.4-12.4) fL Immature Gran % (Auto) 0.5 H (0.0-0.4) % Neut % (Auto) 85.5 H (45-73) % Lymph % (Auto) 6.3 L (20-40) % Meagher % (Auto) 6.4 (2-11) % Eos % (Auto) 1.1 (0-4) % Baso % (Auto) 0.2 (0-2) % Lymph # (Auto) 1.0 L (1.2-4.9) X10*3/uL Meagher # (Auto) 1.0 (0.1-1.2) X10*3/uL Eos # (Auto) 0.2 (0.0-0.4) X10*3/uL Baso # (Auto) 0.0 (0.0-0.2) X10*3/uL Abs Immat Gran (auto) 0.07 H (0.00-0.03) X10*3/uL Absolute Neuts (auto) 13.3 H (2.0-8.3) x10*3/uL Absolute Nucleated RBC 0.000 (0.0-0.012) X10*3/uL Nucleated RBC % (auto) 0.0 (0.0-0.2) /100WBC Sodium 140 (135-145) mmol/L Potassium 4.1 (3.3-5.1) mmol/L Chloride 108 (96-108) mmol/L Carbon Dioxide 22 (22-29) mmol/L Anion Gap 14 (12-20) BUN 19 H (9-16) mg/dL Creatinine 1.05 (0.5-1.4) mg/dL Estim Creat Clear Calc 81.6 Estimated GFR > 60 Random Glucose 128 H (60-115) mg/dL Calcium 9.7 (8.4-10.2) mg/dL Magnesium 2.0 (1.6-2.6) mg/dL Total Bilirubin 0.4 (0.0-1.0) mg/dL AST 19 (5-37) U/L ALT 23 (0-40) U/L Alkaline Phosphatase 74 (39-117) U/L Total Protein 7.2 (6.5-8.0) g/dL Albumin 4.1 (3.5-5.0) g/dL Urine Color Yellow Urine Appearance Clear Urine pH 6.0 (5.0-9.0) Ur Specific [place] 1.020 (1.005-1.025) Urine Protein Negative (Neg-Trace) mg/dL Urine Glucose (UA) Negative (Negative) mg/dL Urine Ketones Negative (Negative) mg/dL Urine Blood Moderate (2+) H (Negative) Urine Nitrite Negative (Negative) Ur Leukocyte Esterase Negative (Negative) Urine RBC 11-20 H (0-2) /HPF Urine WBC 0-5 (0-5) /HPF Ur Squamous Epith Cells 0-2 (0-2) /HPF Urine Bacteria None Seen (None Seen) Hyaline Casts 3-5 (0-2) /LPF Independent Interpretation I performed an independent interpretation of an: CT Scan Interpretation: 4mm calculus R proximal ureter with mild hydroureteronephrosis Radiology Impression Discussion of test interpretation with radiology: I have reviewed the radiologist's reading. Radiologist Impression: CT/CT abdomen pelvis wo IV con IMPRESSION: 4 mm calculus in the proximal right ureter with mild right hydroureteronephrosis. External Record Review External record reviewed: Inpatient record, Office record and Outpatient record Prescription Management I considered prescription management with: Pain Medication and Other Discharge Plan Discharge Clinical Impression: Right ureteral calculus Patient Disposition: Home, Self-Care Instructions: Ureteral Stones (ED) Additional Instructions: You were evaluated in the emergency department for flank pain. Your CT scan showed evidence of a stone in your right ureter. The stone is 4 mm which may or may not pass on its own. Your are being provided with a urine strainer to use at home, instructions are included in your discharge paperwork. You are being prescribed prednisone to decrease inflammation, tamsulosin to allow the stone to pass more easily, and oxycodone as needed for severe pain. You can also take 600 mg of ibuprofen every 6 hours as needed for pain. Your being prescribed ondansetron which you can use every 8 hours as needed for nausea. You are being referred to Urology, please call them 1st thing Friday morning for an appointment this week. Return to the emergency department if you develop worsening pain, persistent vomiting, fever 100.4? or greater, inability to urinate, or any other concerning symptoms. Prescriptions: New ondansetron 4 mg tablet,disintegrating 4 mg PO Q8H PRN (Reason: nausea and vomiting) Qty: 10 0RF prednisone 20 mg tablet 20 mg PO DAILY Qty: 5 0RF tamsulosin 0.4 mg capsule 0.4 mg PO DAILY Qty: 14 0RF oxycodone 5 mg tablet 5 mg PO Q8H PRN (Reason: severe pain (scale score 7-10)) Qty: 8 0RF Rx Instructions: Partial Fill upon patient request. No Action cetirizine 10 mg tablet 10 mg PO DAILY Qty: 30 2RF losartan 50 mg tablet 50 mg PO DAILY Qty: 90 1RF amlodipine 10 mg tablet 10 mg PO DAILY Qty: 90 1RF meclizine 25 mg tablet 25 mg PO TID PRN (Reason: dizziness) Qty: 20 0RF ibuprofen 600 mg tablet 600 mg PO Q8H PRN (Reason: pain) clotrimazole-betamethasone 1-0.05 % cream 1 appl topical DAILY Qty: 45 0RF mupirocin 2 % ointment 1 appl topical BID 10 Days Qty: 15 0RF lidocaine [RectiCare] 5 % cream 1 appl topical BID PRN (Reason: pain) Qty: 30 0RF diclofenac sodium [Voltaren] 1 % gel 2 g topical QID Rx Instructions: apply to single elbow, wrist or hand; for hand includes palm/fingers/back of hand acetaminophen [Tylenol 8 Hour] 650 mg tablet extended release 650 mg PO Q8H Referrals: [facility] [place] [facility] [Provider Group] Print Language: Ghanaian
[2024-01-22 14:16] LABS: Basophils Percent Auto 0.2 % (0-2); Eosinophils Absolute Auto 0.2 X10*3/uL (0.0-0.4); Eosinophils Percent Auto 1.1 % (0-4); Hematocrit 41.9 % (42.0-52.0); Hemoglobin 13.5 g/dl (14.0-18.0); Imm Gran Abs Auto 0.07 X10*3/uL (0.00-0.03); Imm Gran Pct Auto 0.5 % (0.0-0.4); Lymphocytes Percent Auto 6.3 % (20-40); MANUAL DIFF FLAG NO; Mean Corpuscular HGB Conc 32.2 g/dl (31.0-36.0); Mean Corpuscular Hemoglobin 26.7 pg (27.0-33.0); Mean Corpuscular Volume 82.8 fL (80.0-98.0); Monocytes Percent Auto 6.4 % (2-11); Neutrophils Absolute Auto 13.3 x10*3/uL (2.0-8.3); Neutrophils Percent Auto 85.5 % (45-73); Platelet Count 246 X10*3/uL (160-400); Red Blood Count 5.06 X10*6/uL (4.60-5.80); Red Cell Distribution Width 13.5 % (11.0-16.0); White Blood Count 15.5 X10*3/uL (4.8-10.8)
[2024-01-22 14:36] LABS: Alanine Aminotransferase 23 U/L (0-40); Albumin Level 4.1 g/dL (3.5-5.0); Alkaline Phosphatase 74 U/L (39-117); Anion Gap 14 (12-20); Aspartate Amino Transferase 19 U/L (5-37); Bilirubin Total 0.4 mg/dL (0.0-1.0); Blood Urea Nitrogen 19 mg/dL (9-16); Calcium 9.7 mg/dL (8.4-10.2); Carbon Dioxide 22 mmol/L (22-29); Chloride 108 mmol/L (96-108); Creatinine Clr Calc Pharmacy 81.6; Estimated Glomerular Filt Rate > 60; Glucose Random 128 mg/dL (60-115); Potassium 4.1 mmol/L (3.3-5.1); Sodium 140 mmol/L (135-145); Total Protein 7.2 g/dL (6.5-8.0)
[2024-01-22 14:42] LABS: Appearance Urine Clear; Color Urine Yellow; Glucose Urine UA Negative (Negative); Leukocyte Esterase Urine Negative (Negative); Nitrite Urine Negative (Negative); UMIC TRIGGER UACC YES; Urine Blood Moderate (2+) (Negative); Urine Ketones Negative (Negative); Urine Protein Negative (Neg-Trace)
[2024-01-22] MEDS: Ketorolac Tromethamine 30 MG/ML VIAL IM (14:43)
[2024-01-22 14:45] LABS: Bacteria Urine None Seen (None Seen); Squamous Epithelial Cell Urine 0-2 /HPF (0-2); WBC Urine 0-5 /HPF (0-5)
[2024-01-22 16:42] VITALS: BP 127/80; PULSE 54; RESP 17; TEMP 37.1
== END 2024-01-22 16:40 | disposition home or self-care (01) ==
PROVIDERS: Physician Assistant; Emergency Provider Emergency Medicine; PCP Nurse Practitioner Family
DX: N20.1 Calculus of ureter (principal); M54.50 Low back pain, unspecified; R10.9 Unspecified abdominal pain; R11.2 Nausea with vomiting, unspecified; Z87.891 Personal history of nicotine dependence; Z79.899 Other long term (current) drug therapy
CPT/HCPCS: 36415; 74176; 80053; 81001; 83735; 85025; 96372; 99283; 99284; J1885

== ENCOUNTER 2024-01-28 14:57 | Outpatient (AMB) | payer OTHER, SELFPAY ==
--- NOTE | 2024-01-28 15:32 | A.OFFVIS_ITS ---
Intake Intake Visit Reasons: kidney stones Intake Note: New Patient presents for initial visit for kidney stones Urology Medications: none Blood Thinner: none Hazardous Waste Management Specialist Required: Yes Hazardous Waste Management Specialist Name: YENI BELLAKdZENAIDA Accompanied by: Self / Same As Patient Allergies No Known Allergies [No Known Allergies*] Allergy (Verified 01/28/24 16:15) Medication List - Last Reconciled 01/28/24 by VIJI Piedra-JUSTO acetaminophen ER (Tylenol 8 Hour) 650 mg PO Q8H amlodipine 10 mg PO DAILY cetirizine 10 mg PO DAILY clotrimazole-betamethasone 1-0.05 % 1 appl topical DAILY diclofenac sodium 1% (Voltaren) 2 grams topical QID ibuprofen 600 mg PO Q8H PRN lidocaine 5% (RectiCare) 1 appl topical BID PRN losartan 50 mg PO DAILY meclizine 25 mg PO TID PRN mupirocin 2% 1 appl topical BID 10 days HPI HPI Comments History of Present Illness Details Jian is a very pleasant 58-year-old Malay-speaking male patient of Dr. Nelson. He has a past medical history of irritable bowel syndrome, GERD, and hypertension. He presents to the office today as a new patient for nephrolithiasis. In discussion with the patient today he reports having seeked emergency room care over the weekend for right-sided flank pain he had been experiencing at which time a CT of the abdomen was ordered and performed. These results were reviewed with the patient today. 4 mm nonobstructing calculus lower pole right kidney. There are bilateral punctate nonobstructing renal calculi. There is a 4 mm calculus in the proximal right ureter causing mild right hydroureteronephrosis. In discussion with the patient today he reports pain subsided shortly after his emergency room visit. He discusses having a longstanding history of nephrolithiasis. He denies having required any surgical intervention for his nephrolithiasis in the past. He endorses to be drinking approximately 12 cans of Coca-Cola daily as well as increased consumption of coffee daily. He currently denies any bothersome urinary issues or concerns. When asked he denies urinary urgency, urinary frequency, incontinence, nocturia, hematuria, dysuria, foul smelling urine, changes to urinary stream, flank pain, fever, and or chills. He is happy with his current voiding parameters. In review of patient's chart it appears PSA was ordered with PCP however never obtained. Discussed importance in doing so. In office urinalysis results reviewed with the patient today. He otherwise offers no other issues or concerns at this time. 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 Cognitive needs: No Hearing needs: No Vision needs: No Review of Systems Const All systems reviewed & are unremarkable except as noted in HPI and below Physical Exam Const General: cooperative, healthy appearing, comfortable, no acute distress, well developed, alert and awake Orientation/consciousness: patient oriented x3 Limitations: no limitations HEENT Head: Yes normal to inspection, Yes normocephalic and Yes atraumatic Ears: hearing grossly normal bilaterally Eyes General: appearance normal, both eyes and all related structures Neck Neck: Yes normal visual inspection and Yes trachea midline Chest Chest palpation & inspection: normal inspection of the chest Resp Effort & Inspection: normal respiratory effort and able to speak in complete sentences Cardio Rate: regular rate GI Inspection: Yes normal to inspection General: Yes no CVA tenderness Back/Spine/Pelvis Back: no CVA tenderness Skin General skin exam: no rashes or lesions noted Neuro General: patient oriented x3 Extrem General: Yes normal to inspection Psych Appearance: grossly normal and well kempt Mental Status: mental status grossly normal Speech and movement: Normal speech and movement present and Clear speech present Affect: normal affect Attitude: cooperative Thought process: Normal thought process present Thought content: Normal thought content present Insight: Fair insight present (Psych) Judgement: Fair judgement present (Psych) Results AMB Urinalysis, Automated UA Leukoctes 0 Jasen/uL Last Edit by Hetal Jaramillo on 01/28/24 15:49 UA Nitrite Negative Last Edit by Hetal Jaramillo on 01/28/24 15:49 UA Urobilinogen 0.2 mg/dL Last Edit by Hetal Jaramillo on 01/28/24 15:49 UA Protein 15 mg/dL Last Edit by Hetal Jaramillo on 01/28/24 15:49 UA pH 6.5 Last Edit by Hetal Jaramillo on 01/28/24 15:49 UA Blood 0 Terence/uL Last Edit by Hetal Jaramillo on 01/28/24 15:49 UA Specific [place] 1.015 Last Edit by Hetal Jaramillo on 01/28/24 15:49 UA Ketone Negative Last Edit by Hetal Jaramillo on 01/28/24 15:49 UA Bilirubin 0 mg/dL Last Edit by Hetal Jaramillo on 01/28/24 15:49 UA Glucose mg/dL Last Edit by Hetal Jaramillo on 01/28/24 15:49 Results Reviewed Results Reviewed: Laboratory Last Values Urine pH (Auto) 6.5 01/28/24 15:49 Specific [place] (Auto) 1.015 01/28/24 15:49 Urine Protein (Auto) 15 mg/dL 01/28/24 15:49 Urine Ketones (Auto) Negative 01/28/24 15:49 Urine Blood (Auto) 0 Terence/uL 01/28/24 15:49 Urine Nitrite (Auto) Negative 01/28/24 15:49 Urine Bilirubin (Auto) 0 mg/dL 01/28/24 15:49 Urine Urobilinogen (Auto) 0.2 mg/dL 01/28/24 15:49 Leukocyte Esterase (Auto) 0 Jasen/uL 01/28/24 15:49 Date of Service: 01/22/24 EXAMINATION: CT ABDOMEN AND PELVIS WITHOUT CONTRAST FINDINGS: LUNG BASES: Small hiatal hernia. LIVER, GALLBLADDER, AND BILIARY TREE: The noncontrast liver is normal in size and contour. No biliary ductal dilatation is present. The gallbladder is unremarkable with no evidence of radiopaque gallstones, gallbladder wall thickening, or obvious pericholecystic inflammatory changes. PANCREAS: Unremarkable. SPLEEN: Unremarkable. ADRENAL GLANDS: Unremarkable. KIDNEYS AND URETERS: The kidneys are symmetric in size. 4 mm nonobstructing calculus lower pole right kidney. There are bilateral punctate nonobstructing renal calculi. There is a 4 mm calculus in the proximal right ureter causing mild right hydroureteronephrosis. BLADDER: No bladder calculus. GASTROINTESTINAL TRACT: Small and large bowel loops are of normal caliber. No small bowel obstruction. Appendix is within normal limits. ABDOMINAL WALL: No significant hernia is appreciated. LYMPH NODES: No bulky lymphadenopathy. VASCULAR: Normal caliber abdominal aorta. PELVIC VISCERA: Enlarged prostate gland. OSSEOUS STRUCTURES: No destructive bone lesions. IMPRESSION: 4 mm calculus in the proximal right ureter with mild right hydroureteronephrosis. Assessment & Plan Assessment & Plan (1) Right ureteral calculus: Code(s): N20.1 - Calculus of ureter Plan In office urinalysis results reviewed with the patient today; as noted above. Recent CT results reviewed with the patient today; as noted above. Patient reports pain has since subsided. Will obtain renal ultrasound for further assessment evaluation in to ensure for resolution of hydronephrosis. Discussed, educated, and stressed the importance of drinking plenty of water daily. Discussed at length potential causes of nephrolithiasis. Follow-up in 2-4 weeks with imaging to be completed prior; or sooner with any issues, concerns, and or questions. Orders: Orders AMB Urinalysis Automated Today Z13.9 - Encounter for screening, unspecified US renal BI Today N20.0 - Calculus of kidney Patient Instructions: The patient had an opportunity to ask questions regarding the treatment plan. All questions were answered. Physical exam, labs, and imaging were discussed and reviewed in detail. As well as risks, benefits, and discussion of treatment choices. No major barriers to understanding were identified. The patient expressed understanding and agreement with the above treatment plan. The patient was made aware they should contact our office by phone for worsening of their current condition, the appearance of new symptoms, or with any questions or concerns. Compliance is encouraged with any medications and follow up testing that is ordered. It is a privilege to be allowed the opportunity to participate in? your urological care.? Again, if you have any questions or concerns If you have any questions or concerns please do not hesitate to contact me. The office is [phone]. This note is constructed using voice recognition software. While every effort has been made to ensure accuracy medical voucher clerk errors may have been included. Yours sincerely, REGINALDO Piedra Coding Level of Care Code New Pt Level 3 (81922) Diagnoses Right ureteral calculus N20.1
== END 2024-01-28 16:14 | disposition home or self-care (01) ==
PROVIDERS: PCP Nurse Practitioner Family; Visit Provider Nurse Practitioner Family
DX: N20.1 Calculus of ureter (principal); Z13.9 Encounter for screening, unspecified
CPT/HCPCS: 99203

== ENCOUNTER → 2024-01-28 14:57 | Outpatient (BNVA) | payer OTHER, SELFPAY | PROVIDERS: PCP Nurse Practitioner Family; Visit Provider Nurse Practitioner Family | DX: N20.1 Calculus of ureter (principal) | CPT/HCPCS: 81003; 99202 ==

== ENCOUNTER 2024-02-13 09:40 | Outpatient (REF) | payer OTHER, SELFPAY ==
--- NOTE | ~2024-02-13 | US_ITS ---
EXAMINATION: US RETROPERITONEAL LIMITED (RENAL ONLY) CLINICAL INFORMATION: Renal calculus. COMPARISON: CT dated 01/22/2024 TECHNIQUE: Real-time imaging by the child care associate FINDINGS: The right kidney is 11 x 7 x 6 cm. There is no evidence for hydronephrosis. No stone is seen here. The left kidney is 12 x 7 x 6.5 cm. There is no hydronephrosis. There is a low-attenuation structure superiorly which likely represent a cyst. Measures 1.3 x 1.1 x 1.4 cm. Differential would include a prominent renal pyramid. US/US renal BI IMPRESSION: The stone visualized on recent CT of the right kidney is not seen by the permastone applicator on this study. There is no hydronephrosis on the right. Findings suggest small simple appearing cyst versus blown out calyx superior pole left kidney. No hydronephrosis or stone.
== END 2024-02-13 09:41 | disposition home or self-care (01) ==
LOC: HO.US 09:40
PROVIDERS: PCP Nurse Practitioner Family; Visit Provider Nurse Practitioner Family
DX: N20.0 Calculus of kidney (principal)
CPT/HCPCS: 76775

== ENCOUNTER 2024-02-27 11:29 | Outpatient (AMB) | payer OTHER, SELFPAY ==
--- NOTE | 2024-02-27 11:42 | MHC.OFFVIS ---
Intake Visit Reasons: 4w/US(set) Intake Note: Patient presents for follow up visit for kidney stones and imaging Imagin02/13/24 Urology Medications: none Blood Thinner: none Legal Collector Required: Yes Legal Collector Name: AN JUNESEN Accompanied by: Self / Same As Patient Allergies No Known Allergies [No Known Allergies*] Allergy (Verified 02/27/24 13:11) Medication List - Last Reconciled 02/27/24 by REGINALDO Piedra acetaminophen ER (Tylenol 8 Hour) 650 mg PO Q8H amlodipine 10 mg PO DAILY cetirizine 10 mg PO DAILY clotrimazole-betamethasone 1-0.05 % 1 appl topical DAILY diclofenac sodium 1% (Voltaren) 2 grams topical QID ibuprofen 600 mg PO Q8H PRN lidocaine 5% (RectiCare) 1 appl topical BID PRN losartan 50 mg PO DAILY meclizine 25 mg PO TID PRN mupirocin 2% 1 appl topical BID 10 days HPI Comments Details: Jian is a very pleasant 58-year-old Maldivian-speaking male patient of Dr. Nelson. He has a past medical history of irritable bowel syndrome, GERD, and hypertension. He presents to the office today for follow-up. Of note, patient was seen approximately 1 month ago as a new patient for nephrolithiasis at which time a renal ultrasound was ordered for further assessment evaluation. These results reviewed with the patient today. The stone visualized on recent CT of the right kidney is not seen by the box sealing machine operator on this study. There is no hydronephrosis on the right. Findings suggestive small simple appearing cysts versus blown out calyx superior pole left kidney. No hydronephrosis or stone. Patient reports pain he had been experiencing has since subsided. When asked he denies any bothersome urinary issues or concerns. He denies urinary urgency, urinary frequency, incontinence, nocturia, hematuria, dysuria, foul smelling urine, changes to urinary stream, flank pain, fever, and or chills. He is happy with his current voiding parameters. Discussed further metabolic workup however patient discusses how he is moving to [place]. He will follow-up with Urology in [place] as he does have a longstanding history of nephrolithiasis. In office urinalysis results reviewed with the patient today. He otherwise offers no other issues or concerns at this time. 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 Cognitive needs: No Hearing needs: No Vision needs: No Review of Systems Const All systems reviewed & are unremarkable except as noted in HPI and below Physical Exam Const General: cooperative, healthy appearing, comfortable, no acute distress, well developed, alert and awake Orientation/consciousness: patient oriented x3 Limitations: no limitations HEENT Head: Yes normal to inspection, Yes normocephalic and Yes atraumatic Ears: hearing grossly normal bilaterally Eyes General: appearance normal, both eyes and all related structures Neck Neck: Yes normal visual inspection and Yes trachea midline Chest Chest palpation & inspection: normal inspection of the chest Resp Effort & Inspection: normal respiratory effort and able to speak in complete sentences Cardio Rate: regular rate GI Inspection: Yes normal to inspection General: Yes no CVA tenderness Back/Spine/Pelvis Back: no CVA tenderness Skin General skin exam: no rashes or lesions noted Neuro General: patient oriented x3 Extrem General: Yes normal to inspection Psych Appearance: grossly normal and well kempt Mental Status: mental status grossly normal Speech and movement: Normal speech and movement present and Clear speech present Affect: normal affect Attitude: cooperative Thought process: Normal thought process present Thought content: Normal thought content present Insight: Fair insight present (Psych) Judgement: Fair judgement present (Psych) Results AMB Urinalysis, Automated UA Leukoctes 0 Jasen/uL Last Edit by Hetal Jaramillo on 02/27/24 11:59 UA Nitrite Negative Last Edit by Hetal Jaramillo on 02/27/24 11:59 UA Urobilinogen 0.2 mg/dL Last Edit by Hetal Jaramillo on 02/27/24 11:59 UA Protein 15 mg/dL Last Edit by Hetal Isabelllouisa on 02/27/24 11:59 UA pH 5.5 Last Edit by Hetal Jaramillo on 02/27/24 11:59 UA Blood 0 Terence/uL Last Edit by Hetal Jaramillo on 02/27/24 11:59 UA Specific [place] 1.025 Last Edit by Hetal Jaramillo on 02/27/24 11:59 UA Ketone Negative Last Edit by Hetal Jaramillo on 02/27/24 11:59 UA Bilirubin 0 mg/dL Last Edit by Hetal Jaramillo on 02/27/24 11:59 UA Glucose 0 mg/dL Last Edit by Hetal Jaramillo on 02/27/24 11:59 Results Reviewed Results Reviewed: Laboratory Last Values Urine pH (Auto) 5.5 02/27/24 11:57 Specific [place] (Auto) 1.025 02/27/24 11:57 Urine Protein (Auto) 15 mg/dL 02/27/24 11:57 Glucose (UA)(Auto) 0 mg/dL 02/27/24 11:57 Urine Ketones (Auto) Negative 02/27/24 11:57 Urine Blood (Auto) 0 Terence/uL 02/27/24 11:57 Urine Nitrite (Auto) Negative 02/27/24 11:57 Urine Bilirubin (Auto) 0 mg/dL 02/27/24 11:57 Urine Urobilinogen (Auto) 0.2 mg/dL 02/27/24 11:57 Leukocyte Esterase (Auto) 0 Jasen/uL 02/27/24 11:57 Date of Service: 02/13/24 EXAMINATION: US RETROPERITONEAL LIMITED (RENAL ONLY) FINDINGS: The right kidney is 11 x 7 x 6 cm. There is no evidence for hydronephrosis. No stone is seen here. The left kidney is 12 x 7 x 6.5 cm. There is no hydronephrosis. There is a low-attenuation structure superiorly which likely represent a cyst. Measures 1.3 x 1.1 x 1.4 cm. Differential would include a prominent renal pyramid. IMPRESSION: The stone visualized on recent CT of the right kidney is not seen by the box sealing machine operator on this study. There is no hydronephrosis on the right. Findings suggest small simple appearing cyst versus blown out calyx superior pole left kidney. No hydronephrosis or stone. Assessment & Plan Assessment & Plan (1) Nephrolithiasis: Code(s): N20.0 - Calculus of kidney Category: Medical Plan In office urinalysis results reviewed with the patient today; as noted Recent renal imaging results reviewed with the patient today; as noted above. Discussed further metabolic workup with 24 hour urine collection and labs; however patient is moving to [place]. Discussed, educated, and stressed the importance of drinking plenty of water daily. Discussed at length potential causes of nephrolithiasis. Discussed calling office with any questions, concerns, and or questions however will not schedule follow-up as patient is moving. Orders: Orders AMB Urinalysis Automated Today Z13.9 - Encounter for screening, unspecified Patient Instructions: The patient had an opportunity to ask questions regarding the treatment plan. All questions were answered. Physical exam, labs, and imaging were discussed and reviewed in detail. As well as risks, benefits, and discussion of treatment choices. No major barriers to understanding were identified. The patient expressed understanding and agreement with the above treatment plan. The patient was made aware they should contact our office by phone for worsening of their current condition, the appearance of new symptoms, or with any questions or concerns. Compliance is encouraged with any medications and follow up testing that is ordered. It is a privilege to be allowed the opportunity to participate in? your urological care.? Again, if you have any questions or concerns If you have any questions or concerns please do not hesitate to contact me. The office is [phone]. This note is constructed using voice recognition software. While every effort has been made to ensure accuracy fixed income analyst errors may have been included. Yours sincerely, REGINALDO Piedra
== END 2024-02-27 12:16 | disposition home or self-care (01) ==
PROVIDERS: PCP Nurse Practitioner Family; Visit Provider Nurse Practitioner Family
DX: N20.0 Calculus of kidney (principal); Z13.9 Encounter for screening, unspecified
CPT/HCPCS: 99213

== ENCOUNTER → 2024-02-27 11:29 | Outpatient (BNVA) | payer OTHER, SELFPAY | PROVIDERS: PCP Nurse Practitioner Family; Visit Provider Nurse Practitioner Family | DX: N20.0 Calculus of kidney (principal) | CPT/HCPCS: 81003; 99212 ==

== ENCOUNTER 2024-04-01 19:08 | Emergency (ER) | payer OTHER, SELFPAY ==
--- NOTE | 2024-04-01 | ECG_ITS ---
Test Reason : CHEST PAIN Blood Pressure : / mmHG Vent. Rate : 063 BPM Atrial Rate : 063 BPM P-R Int : 168 ms QRS Dur : 090 ms QT Int : 402 ms P-R-T Axes : 019 024 040 degrees QTc Int : 411 ms Normal sinus rhythm Normal ECG When compared with ECG of 09-MAR-2020 11:04, No significant change was found Referred By: Generic ED Physician Electronically Signed By:Malcolm Fulton
--- NOTE | ~2024-04-01 | XR_ITS ---
EXAMINATION: XR CHEST CLINICAL INFORMATION: Chest pain. COMPARISON: None available. TECHNIQUE: 2 views of the chest were obtained. FINDINGS: Heart size is normal. The lungs are clear. There is no pleural effusion or pneumothorax. No acute osseous abnormality. XR/XR chest 2V IMPRESSION: No acute cardiopulmonary disease.
[2024-04-01 19:14] VITALS: BP 157/78; PULSE 65; RESP 18; TEMP 36.6; O2SAT 97; BMI 26.9
--- NOTE | 2024-04-01 19:14 | ED.CHESTPAIN ---
HPI - Chest Pain General Chief Complaint: Chest Pain Stated Complaint: chest pain Related Data Home Medications ?Medication ?Instructions ?Recorded ?Confirmed acetaminophen 650 mg 650 mg PO Q8H 10/13/20 02/27/24 tablet,extended release (Tylenol 8 Hour) diclofenac sodium 1 % topical gel 2 g topical QID 10/13/20 02/27/24 (Voltaren) ibuprofen 600 mg tablet 600 mg PO Q8H PRN pain 03/23/21 02/27/24 Previous Rx's ?Medication ?Instructions ?Recorded cetirizine 10 mg tablet 10 mg PO DAILY #30 tabs 06/13/21 lidocaine 5 % topical cream 1 appl topical BID PRN pain #30 05/09/22 (RectiCare) grams meclizine 25 mg tablet 25 mg PO TID PRN dizziness #20 tabs 04/30/23 clotrimazole-betamethasone 1 1 appl topical DAILY #45 grams 09/02/23 %-0.05 % topical cream mupirocin 2 % topical ointment 1 appl topical BID 10 days #15 09/02/23 grams amlodipine 10 mg tablet 10 mg PO DAILY #90 tabs 03/19/24 losartan 50 mg tablet 50 mg PO DAILY #90 tabs 03/19/24 Allergies Allergy/AdvReac Type Severity Reaction Status Date / Time No Known Allergies Allergy Verified 04/01/24 19:20 [No Known Allergies*] [facility] Past Medical History Medical History IBS (irritable bowel syndrome) GERD (gastroesophageal reflux disease) History of pneumonia History of corneal abrasion HTN (hypertension) Family History Family History Father Diabetes HTN (hypertension) Social History Social History Household Members: Spouse Housing: House Alcohol intake: never Patient Tobacco Use Status: Former Tobacco user e-Cigarette/Vaping Use: Never Used Advance Directives: No Advance Directives Information Provided: No Do you have a plan to hurt others: No Plan service: No Current occupational status: employed 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 Full HPI, ROS, assessment and treatment plan per primary provider in the Main ED. 58 year old male hx of HTN, renal stones here for eval of intermittent left sided chest pain with radiation to right chest which began at 1000 this morning while laying down. Admits associated central chest pressure when lying down along with palpitations. 6/10 pain at its worst. took 2 tylenol this morning without relief. endorses increased life stressors recently. recent 14 [address] ride. reports having this a few times in the past. 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 holter monitor scheduled for 03/30/24. denies sob, cough, hemoptysis. well appearing. not diaphoretic. rrr. lungs cta b/l. no calf tenderness b/l. Plan: ekg, labs, trop, cxr Reevaluation(s) Reevaluation #1: Patient left the ED without completing treatment. Medical Decision Making Lab Data 04/01/24 19:27 04/01/24 19:27 Labs: Lab Results 04/01/24 Range/Units 19:27 WBC 5.9 (4.8-10.8) X10*3/uL RBC 5.11 (4.60-5.80) X10*6/uL Hgb 14.1 (14.0-18.0) g/dl Hct 43.9 (42.0-52.0) % MCV 85.9 (80.0-98.0) fL MCH 27.6 (27.0-33.0) pg MCHC 32.1 (31.0-36.0) g/dl RDW 14.0 (11.0-16.0) % Plt Count 207 (160-400) X10*3/uL MPV 10.6 (9.4-12.4) fL Immature Gran % (Auto) 0.3 (0.0-0.4) % Neut % (Auto) 52.7 (45-73) % Lymph % (Auto) 23.1 (20-40) % [place] % (Auto) 13.1 H (2-11) % Eos % (Auto) 10.3 H (0-4) % Baso % (Auto) 0.5 (0-2) % Lymph # (Auto) 1.4 (1.2-4.9) X10*3/uL [place] # (Auto) 0.8 (0.1-1.2) X10*3/uL Eos # (Auto) 0.6 H (0.0-0.4) X10*3/uL Baso # (Auto) 0.0 (0.0-0.2) X10*3/uL Abs Immat Gran (auto) 0.02 (0.00-0.03) X10*3/uL Absolute Neuts (auto) 3.1 (2.0-8.3) x10*3/uL Absolute Nucleated RBC 0.000 (0.0-0.012) X10*3/uL Nucleated RBC % (auto) 0.0 (0.0-0.2) /100WBC PT 11.1 (11.1-13.3) SEC INR 0.9 (0.9-1.1) D-Dimer High Sensitivty < 150 NG/ML Sodium 145 (135-145) mmol/L Potassium 4.2 (3.3-5.1) mmol/L Chloride 109 H (96-108) mmol/L Carbon Dioxide 25 (22-29) mmol/L Anion Gap 15 (12-20) BUN 14 (9-16) mg/dL Creatinine 0.85 (0.5-1.4) mg/dL Estim Creat Clear Calc 91.6 Estimated GFR > 60 Random Glucose 99 (60-115) mg/dL Calcium 9.7 (8.4-10.2) mg/dL Magnesium 2.2 (1.6-2.6) mg/dL Total Bilirubin 0.3 (0.0-1.0) mg/dL AST 18 (5-37) U/L ALT 24 (0-40) U/L Alkaline Phosphatase 88 (39-117) U/L Troponin I High Sens < 2.7 (<3.5-35.0) ng/L Total Protein 7.4 (6.5-8.0) g/dL Albumin 4.1 (3.5-5.0) g/dL Discharge Plan Discharge Clinical Impression: Chest pain Patient Disposition: Left W/O Completing Treatment Prescriptions: No Action cetirizine 10 mg tablet 10 mg PO DAILY Qty: 30 2RF losartan 50 mg tablet 50 mg PO DAILY Qty: 90 1RF amlodipine 10 mg tablet 10 mg PO DAILY Qty: 90 1RF meclizine 25 mg tablet 25 mg PO TID PRN (Reason: dizziness) Qty: 20 0RF ibuprofen 600 mg tablet 600 mg PO Q8H PRN (Reason: pain) clotrimazole-betamethasone 1-0.05 % cream 1 appl topical DAILY Qty: 45 0RF mupirocin 2 % ointment 1 appl topical BID 10 Days Qty: 15 0RF lidocaine [RectiCare] 5 % cream 1 appl topical BID PRN (Reason: pain) Qty: 30 0RF diclofenac sodium [Voltaren] 1 % gel 2 g topical QID Rx Instructions: apply to single elbow, wrist or hand; for hand includes palm/fingers/back of hand acetaminophen [Tylenol 8 Hour] 650 mg tablet extended release 650 mg PO Q8H Discharge Date/Time: 04/01/24 23:09
[2024-04-01 19:31] LABS: MANUAL DIFF FLAG NO
[2024-04-01 19:32] LABS: Basophils Percent Auto 0.5 % (0-2); Eosinophils Absolute Auto 0.6 X10*3/uL (0.0-0.4); Eosinophils Percent Auto 10.3 % (0-4); Hematocrit 43.9 % (42.0-52.0); Hemoglobin 14.1 g/dl (14.0-18.0); Imm Gran Abs Auto 0.02 X10*3/uL (0.00-0.03); Imm Gran Pct Auto 0.3 % (0.0-0.4); Lymphocytes Absolute Auto 1.4 X10*3/uL (1.2-4.9); Lymphocytes Percent Auto 23.1 % (20-40); Mean Corpuscular HGB Conc 32.1 g/dl (31.0-36.0); Mean Corpuscular Hemoglobin 27.6 pg (27.0-33.0); Mean Corpuscular Volume 85.9 fL (80.0-98.0); Mean Platelet Volume 10.6 fL (9.4-12.4); Monocytes Absolute Auto 0.8 X10*3/uL (0.1-1.2); Monocytes Percent Auto 13.1 % (2-11); Neutrophils Absolute Auto 3.1 x10*3/uL (2.0-8.3); Neutrophils Percent Auto 52.7 % (45-73); Platelet Count 207 X10*3/uL (160-400); Red Blood Count 5.11 X10*6/uL (4.60-5.80); White Blood Count 5.9 X10*3/uL (4.8-10.8)
[2024-04-01 19:38] LABS: INTERNATIONAL NORM RATIO 0.9 (0.9-1.1); Prothrombin Time 11.1 SEC (11.1-13.3)
[2024-04-01 19:52] LABS: Alanine Aminotransferase 24 U/L (0-40); Albumin Level 4.1 g/dL (3.5-5.0); Alkaline Phosphatase 88 U/L (39-117); Anion Gap 15 (12-20); Aspartate Amino Transferase 18 U/L (5-37); Bilirubin Total 0.3 mg/dL (0.0-1.0); Blood Urea Nitrogen 14 mg/dL (9-16); Calcium 9.7 mg/dL (8.4-10.2); Carbon Dioxide 25 mmol/L (22-29); Chloride 109 mmol/L (96-108); Creatinine Clr Calc Pharmacy 91.6; Estimated Glomerular Filt Rate > 60; Glucose Random 99 mg/dL (60-115); Magnesium 2.2 mg/dL (1.6-2.6); Potassium 4.2 mmol/L (3.3-5.1); Sodium 145 mmol/L (135-145); Total Protein 7.4 g/dL (6.5-8.0)
[2024-04-01 20:00] LABS: Troponin-I High Sensitivity < 2.7 ng/L (<3.5-35.0)
--- NOTE | 2024-04-01 22:27 | PC.NURSE ---
Pt called in WR with no answer
[2024-04-01 23:28] LABS: D Dimer High Sensitivity < 150 NG/ML
== END 2024-04-01 23:09 | disposition left against medical advice (07) ==
PROVIDERS: Emergency Medicine; Emergency Provider Emergency Medicine; PCP Nurse Practitioner Family
DX: R07.9 Chest pain, unspecified (principal)
CPT/HCPCS: 36415; 71046; 80053; 83735; 84484; 85025; 85379; 85610; 93005; 99283

== ENCOUNTER → 2024-04-01 19:09 | Outpatient (BNV) | payer OTHER, SELFPAY | PROVIDERS: Emergency Provider Emergency Medicine; PCP Nurse Practitioner Family; Visit Provider Internal Medicine Cardiovascular Disease | DX: R07.9 Chest pain, unspecified (principal) | CPT/HCPCS: 93010 ==

== ENCOUNTER 2024-04-12 12:23 | Outpatient (AMB) | payer OTHER, SELFPAY ==
--- NOTE | 2024-04-12 12:31 | A.OFFPC_ITS ---
Vital Signs 04/12/24 12:35 Height 5 ft 8 in Weight 176 lb BMI 26.8 BP 114/70 Blood Pressure Location Rt brachial Position Sitting Pulse 67 Pulse Source Pulse Oximeter Pulse Oximetry (%) 98 Oxygen Delivery Method Room Air Intake Visit Reasons: follow up on medications Intake Note: Patient here for HTN f/u. Allergies No Known Allergies [No Known Allergies*] Allergy (Verified 04/12/24 13:16) Medication List - Last Reconciled 04/12/24 by REGINALDO Melendez acetaminophen ER (Tylenol 8 Hour) 650 mg PO Q8H amlodipine 10 mg PO DAILY cetirizine 10 mg PO DAILY clotrimazole-betamethasone 1-0.05 % 1 appl topical DAILY diclofenac sodium 1% (Voltaren) 2 grams topical QID ibuprofen 600 mg PO Q8H PRN lidocaine 5% (RectiCare) 1 appl topical BID PRN losartan 50 mg PO DAILY meclizine 25 mg PO TID PRN mupirocin 2% 1 appl topical BID 10 days Tobacco use date assessed: 04/12/24 Dental Screening Dental Screen Date: 04/12/24 Did you have a dental visit in the last 12 months?: Yes Did you have a dental problem in the last 6 months where you did not have access to dental care?: No Was dental information given to patient?: Patient has dentist HPI follow up on medications HPI Details HTN: Blood pressure is stable, managed with amlodipine 10mg and losartan 50mg. Will order labs. Pt was seen in the ER on 04/01 c/o chest pain. EKG was normal and unchanged from previous. Pt left the ER without completing treatment. Pt had an echo in September of 2023. Will order stress test. Denies current chest pain, shortness of breath, headache, dizziness, and blurred vision. 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 77498 - PHQ-9 Billing: Patient declined-do not bill Source: Developed by Drs. Jonny Bolanos, Donald Narayanan and colleagues, with an educational roger from [employer]. Thrive Questionnaire Date Thrive assessed: 04/12/24 What is your living situation today?: I choose not to answer this question Within the past 12 months, did the food you bought not last and you didn't have the money to get more?: I choose not to answer this question Within the past 12 months, did you worry whether your food would run out before you got money to buy more?: I choose not to answer this question Do you have trouble paying for medicines?: I choose not to answer this question Do you have trouble getting transportation to medical appointments?: I choose not to answer this question Do you have trouble paying your heating and electricity bill?: I choose not to answer this question Do you have trouble taking care of your child, family member or friend?: I choose not to answer this question Do you have trouble with day-to-day activities such as bathing, preparing meals, shopping, managing finances, etc.?: I choose not to answer this question Are you currently unemployed and looking for a job?: I choose not to answer this question Are you interested in more education?: I choose not to answer this question Currently or been in a relationship where the following occur: I choose not to answer this question THRIVE Score: 0 AUDIT C Alcohol Use Questionnaire (AUDIT-C) 1. How often do you have a drink containing alcohol?: Never 3. How often do you have six or more drinks on one occasion?: Never Total Score: 0 Score Reviewed/Action Taken: No OSCAR-7 AMB Questionnaire OSCAR-7 Date OSCAR - 7 assessed: 04/12/24 Source: Developed by Drs. Jonny Bolanos, Anat Wagner, Donald Minor and colleagues, with an educational roger from [employer]. OSCAR-7 Assessment Billing OSCAR-7 Assessment Tool: pt declined-do not bill Review of Systems Const Reports as per HPI Physical exam (Primary Care) Vital Signs: Last Vital Signs Pulse 67 04/12/24 12:35 BP 114/70 04/12/24 12:35 Pulse Ox 98 04/12/24 12:35 Oxygen Delivery Method Room Air 04/12/24 12:35 BMI result Body Mass Index 26.8 Tobacco/Smoking Status: Tobacco use Status Tobacco use date assessed 04/12/24 04/12/24 12:39 Patient Tobacco Use Status Former Tobacco user 04/12/24 12:33 e-Cigarette/Vaping Use Never Used 04/12/24 12:33 Currently or been in a relationship where the following occur: I choose not to answer this question Const General: cooperative Orientation/consciousness: patient oriented x3 Resp Effort & Inspection: normal respiratory effort Auscultation: clear to auscultation bilaterally Cardio Rate: regular rate Rhythm: regular rhythm Heart sounds: S1 normal heart sound present, S2 normal heart sound present and Murmur heart sound present systolic Neuro General: patient oriented x3 Extrem Right lower extremity: no edema Left lower extremity: no edema Psych Appearance: grossly normal Mental Status: mental status grossly normal Speech and movement: Normal speech and movement present Affect: normal affect Attitude: cooperative Thought process: Normal thought process present Thought content: Normal thought content present Insight: Good insight present (Psych) Judgement: Good judgement present (Psych) Assessment and Plan Assessment & Plan (1) Chest pain: Code(s): R07.9 - Chest pain, unspecified Plan: ekg:NSR. no current CP, will order a stress test, will follow up with him in 4 months, encouraged to get labs drawn (ordered last fall) Plan The patient agreed to the use of a medical coding specialist for this encounter. Scribed for REGINALDO Aly by Amie Tyler medical coding specialist, on 04/12/2024 at 12:40 EST. Orders: Orders NM cardiolite stress test Today R07.9 - Chest pain, unspecified CA stress test Today R07.9 - Chest pain, unspecified Medications: Refilled clotrimazole-betamethasone 1-0.05 % 1 appl topical DAILY 45 grams 0RF Coding Level of Care Code Est Pt Level 3 (05399) Diagnoses Chest pain R07.9
[2024-04-12 12:35] VITALS: BP 114/70; PULSE 67; O2SAT 98; BMI 26.8
== END 2024-04-12 13:07 | disposition home or self-care (01) ==
PROVIDERS: PCP Nurse Practitioner Family; Visit Provider Nurse Practitioner Family
DX: R07.9 Chest pain, unspecified (principal); I10 Essential (primary) hypertension
CPT/HCPCS: 99213